=== PATIENT | female | born 1940 | race Caucasian/White ===

== ENCOUNTER 2020-05-14 10:12 | Inpatient (IN) | payer MEDICARE ==
--- NOTE | 2020-05-14 12:07 | XR ---
EXAMINATION TYPE: XR chest 2V DATE OF EXAM: 05/14/2020 COMPARISON: None INDICATION: Difficulty breathing TECHNIQUE: Frontal and lateral views of the chest are obtained. FINDINGS: The heart size is normal. The pulmonary vasculature is normal. The lungs are clear. Spondylosis of the midthoracic spine is evident. IMPRESSION: 1. No acute pulmonary process.
[2020-05-14 12:15] LABS: Anisocytosis Slight; Basophils % (A) 0 %; Eosinophils # (A) 0.1 k/uL (0-0.7); Eosinophils % (A) 2 %; HCT 23.8 % (34.0-46.0); HGB 7.9 gm/dL (11.4-16.0); Hypochromasia Slight; Lymphocytes # (A) 0.8 k/uL (1.0-4.8); Lymphocytes % (A) 16 %; MCH 31.3 pg (25.0-35.0); MCHC 33.3 g/dL (31.0-37.0); MCV 94.1 fL (80.0-100.0); Mean Platelet Volume 7.5; Monocytes # (A) 0.5 k/uL (0-1.0); Monocytes % (A) 9 %; Neutrophils # (A) 3.7 k/uL (1.3-7.7); Neutrophils % (A) 72 %; Platelet Count 286 k/uL (150-450); RBC 2.53 m/uL (3.80-5.40); RDW 17.1 % (11.5-15.5); WBC 5.1 k/uL (3.8-10.6)
[2020-05-14 12:18] LABS: INR 0.9 (<1.2); Partial Thromboplastin Time 24.2 sec (22.0-30.0); Prothrombin Time 10.1 sec (9.0-12.0)
[2020-05-14 12:20] LABS: Albumin 3.1 g/dL (3.5-5.0); Calcium 8.6 mg/dL (8.4-10.2); Magnesium 1.7 mg/dL (1.6-2.3); Total Bilirubin 0.6 mg/dL (0.2-1.3); Total Protein 6.2 g/dL (6.3-8.2)
[2020-05-14 12:28] LABS: Potassium 5.1 mmol/L (3.5-5.1)
[2020-05-14] MEDS ORDERED: NALOXONE 0.4 MG/ML 1 ML VIAL IV PRN (13:02)
[2020-05-14] MEDS ORDERED: PANTOPRAZOLE 40 MG/10 ML VIAL IVP STA (13:03)
--- NOTE | 2020-05-14 13:06 | ED ---
SOB HPI - General Chief Complaint: Shortness of Breath Stated Complaint: SOB Time Seen by Provider: 05/14/20 10:32 Source: patient Mode of arrival: wheelchair Limitations: no limitations - History of Present Illness Initial Comments: 79-year-old female presenting for multiple complaints. Patient states that she has had dyspnea for the past 2 months she states about a month ago she had bright red blood per rectum. She states is now dark she states at that time department of blood she states she was "hemorrhaging" because she was taking ibuprofen. She denies a known history of peptic ulcer disease or experiencing this in the past she stated she did not present to a hospital nor her primary care provider. Patient states she has had on and off leg swelling. Patient states her shortness of breath has increased so much so that she has difficulty ambulating. Patient denies any chest pain shortness of breath unilateral leg swelling hemoptysis history of DVT pulmonary embolism. Patient denies chest pressure jaw pain and arm pain or back pain that is new. Patient states she was taking ibuprofen month ago she had some low back pain after she felt like she slept wrong. Patient denies any specific changes in that denies any loss of bowel bladder control urinary retention loss of sensation or weakness of the lower extremities. When shortest of breath worsened this week patient presents emergency department she states the stools are still very dark - Related Data Home Medications Medication Instructions Recorded Confirmed Ascorbic Acid [Vitamin C] 500 mg PO DAILY 10/05/14 05/14/20 Benazepril HCl 20 mg PO DAILY 10/05/14 05/14/20 Calcium Carbonate/Vitamin D3 1 tab PO DAILY 10/05/14 05/14/20 [Calcium 600 + Vit D Tablet] Glucosam/Ole-Msm1/C/Efrem/Bosw 1 tab PO DAILY 10/05/14 05/14/20 [Glucosamine-Chondroitin Tablet] Levothyroxine Sodium [Synthroid] 175 mcg PO MOTUWETHFR 10/05/14 05/14/20 Levothyroxine Sodium [Synthroid] 200 mcg PO SUSA 10/05/14 05/14/20 Multivitamins, Thera [Theragran] 1 tab PO DAILY 10/05/14 05/14/20 Vitamin E (Dl,Tocopheryl Acet) 400 unit PO DAILY 10/05/14 05/14/20 [Vitamin E] Cholecalciferol [Vitamin D3 (25 1,000 unit PO DAILY 05/14/20 05/14/20 Mcg = 1000 Iu)] Turmeric Root Extract [Turmeric] 500 mg PO DAILY 05/14/20 05/14/20 Allergies Allergy/AdvReac Type Severity Reaction Status Date / Time No Known Allergies Allergy Verified 05/14/20 13:52 Review of Systems ROS Statement: Those systems with pertinent positive or pertinent negative responses have been documented in the HPI. ROS Other: All systems not noted in ROS Statement are negative. Past Medical History Past Medical History: Hypertension, Thyroid Disorder Additional Past Medical History / Comment(s): OCCASIONAL SWELLING IN ANKLES, HEMORRHOIDS AND OCCASIONAL BLOOD IN STOOL, RASH IN VAGINAL AREA. PT USES WALKER. History of Any Multi-Drug Resistant Organisms: None Reported Past Surgical History: Tubal Ligation Additional Past Surgical History / Comment(s): TOE SURGERY Additional Past Anesthesia/Blood Transfusion Reaction / Comment(s): HX OF SPINAL ANESTHESIA WITH DIFFICULTY BREATHING AND CHEST PRESSURE. Past Psychological History: No Psychological Hx Reported Smoking Status: Never smoker Past Alcohol Use History: None Reported Past Drug Use History: None Reported - Past Family History Mother Family Medical History: Cancer Additional Family Medical History / Comment(s): CERVICAL CA General Exam - General Exam Comments Initial Comments: General: The patient is awake and alert, in no distress Eye: +3 mm pupils are equal, round and reactive to light, extra-ocular movements are intact. No nystagmus. There is normal conjunctiva bilaterally. No signs of icterus. Ears, nose, mouth and throat: There are moist mucous membranes and no oral lesions. Neck: The neck is supple, there is no tenderness or JVD. Cardiovascular: There is a regular rate and rhythm. No murmur, rub or gallop is appreciated. Respiratory: Lungs are clear to auscultation, respirations are non-labored, breath sounds are equal. No wheezes, stridor, rales, or rhonchi. Gastrointestinal: Soft, non-distended, non-tender abdomen without masses or organomegaly noted. There is no rebound or guarding present. Dark black stool per rectum no bright redn blood Musculoskeletal: Normal ROM, no tenderness. Strength 5/5. Sensation intact. Radial and DP pulses equal bilaterally 2+. Neurological: A&O x 3. CN II-XII intact, There are no obvious motor or sensory deficits. Coordination appears grossly intact. Speech is normal. Skin: Skin is warm and dry and no rashes or lesions are noted. Patient is very large lower extremities there is nonpitting lower external swelling equal bilaterally no calf pain or tenderness Psychiatric: Cooperative, appropriate mood & affect, normal judgment. Limitations: no limitations Course Vital Signs 05/14/20 05/14/20 10:25 15:30 Temperature 97.9 F 97.5 F L Pulse Rate 95 85 Respiratory 18 18 Rate Blood Pressure 112/69 138/51 O2 Sat by Pulse 98 98 Oximetry Medical Decision Making - Medical Decision Making Hemodynamically stable 79yo female. Hgb 7.9. Dark stools. Concern symptomatic anemia/upper GI bleed. protonix initiated. Pt transfused one unit. Patient appears stable. Case discussed with Douglas Davis who is agreeeable to admission, transfusion and care plan. GI on consultation. Pt will be admitted to Dr. Marcum who covers for patient primary care provider. - Lab Data Result diagrams: 05/14/20 11:27 05/14/20 11:27 Lab Results 05/14/20 05/14/20 05/14/20 Range/Units 11:27 11:27 11:27 WBC 5.1 (3.8-10.6) k/uL RBC 2.53 L (3.80-5.40) m/uL Hgb 7.9 L (11.4-16.0) gm/dL Hct 23.8 L (34.0-46.0) % MCV 94.1 (80.0-100.0) fL MCH 31.3 (25.0-35.0) pg MCHC 33.3 (31.0-37.0) g/dL RDW 17.1 H (11.5-15.5) % Plt Count 286 (150-450) k/uL MPV 7.5 Neutrophils % 72 % Lymphocytes % 16 % Monocytes % 9 % Eosinophils % 2 % Basophils % 0 % Neutrophils # 3.7 (1.3-7.7) k/uL Lymphocytes # 0.8 L (1.0-4.8) k/uL Monocytes # 0.5 (0-1.0) k/uL Eosinophils # 0.1 (0-0.7) k/uL Basophils # 0.0 (0-0.2) k/uL Hypochromasia Slight Anisocytosis Slight PT 10.1 (9.0-12.0) sec INR 0.9 (<1.2) APTT 24.2 (22.0-30.0) sec Sodium 135 L (137-145) mmol/L Potassium 5.1 (3.5-5.1) mmol/L Chloride 105 (98-107) mmol/L Carbon Dioxide 25 (22-30) mmol/L Anion Gap 5 mmol/L BUN 44 H (7-17) mg/dL Creatinine 0.93 (0.52-1.04) mg/dL Est GFR (CKD-EPI)AfAm 69 (>60 ml/min/1.73 sqM) Est GFR (CKD-EPI)NonAf 60 (>60 ml/min/1.73 sqM) Glucose 93 (74-99) mg/dL Plasma Lactic Acid Osiel (0.7-2.0) mmol/L Calcium 8.6 (8.4-10.2) mg/dL Magnesium 1.7 (1.6-2.3) mg/dL Total Bilirubin 0.6 (0.2-1.3) mg/dL AST 42 H (14-36) U/L ALT 19 (4-34) U/L Alkaline Phosphatase 55 (38-126) U/L Troponin I (0.000-0.034) ng/mL NT-Pro-B Natriuret Pep pg/mL Total Protein 6.2 L (6.3-8.2) g/dL Albumin 3.1 L (3.5-5.0) g/dL Stool Occult Blood (Negative) Coronavirus (PCR) (Not Detectd) Blood Type Blood Type Confirm Blood Type Recheck Bld Type Recheck Status Antibody Screen Crossmatch Spec Expiration Date 05/14/20 05/14/20 05/14/20 Range/Units 11:27 11:27 11:27 WBC (3.8-10.6) k/uL RBC (3.80-5.40) m/uL Hgb (11.4-16.0) gm/dL Hct (34.0-46.0) % MCV (80.0-100.0) fL MCH (25.0-35.0) pg MCHC (31.0-37.0) g/dL RDW (11.5-15.5) % Plt Count (150-450) k/uL MPV Neutrophils % % Lymphocytes % % Monocytes % % Eosinophils % % Basophils % % Neutrophils # (1.3-7.7) k/uL Lymphocytes # (1.0-4.8) k/uL Monocytes # (0-1.0) k/uL Eosinophils # (0-0.7) k/uL Basophils # (0-0.2) k/uL Hypochromasia Anisocytosis PT (9.0-12.0) sec INR (<1.2) APTT (22.0-30.0) sec Sodium (137-145) mmol/L Potassium (3.5-5.1) mmol/L Chloride (98-107) mmol/L Carbon Dioxide (22-30) mmol/L Anion Gap mmol/L BUN (7-17) mg/dL Creatinine (0.52-1.04) mg/dL Est GFR (CKD-EPI)AfAm (>60 ml/min/1.73 sqM) Est GFR (CKD-EPI)NonAf (>60 ml/min/1.73 sqM) Glucose (74-99) mg/dL Plasma Lactic Acid Osiel 0.9 (0.7-2.0) mmol/L Calcium (8.4-10.2) mg/dL Magnesium (1.6-2.3) mg/dL Total Bilirubin (0.2-1.3) mg/dL AST (14-36) U/L ALT (4-34) U/L Alkaline Phosphatase (38-126) U/L Troponin I <0.012 (0.000-0.034) ng/mL NT-Pro-B Natriuret Pep 103 pg/mL Total Protein (6.3-8.2) g/dL Albumin (3.5-5.0) g/dL Stool Occult Blood (Negative) Coronavirus (PCR) (Not Detectd) Blood Type Blood Type Confirm Blood Type Recheck Bld Type Recheck Status Antibody Screen Crossmatch Spec Expiration Date 05/14/20 05/14/20 05/14/20 Range/Units 11:27 11:30 11:45 WBC (3.8-10.6) k/uL RBC (3.80-5.40) m/uL Hgb (11.4-16.0) gm/dL Hct (34.0-46.0) % MCV (80.0-100.0) fL MCH (25.0-35.0) pg MCHC (31.0-37.0) g/dL RDW (11.5-15.5) % Plt Count (150-450) k/uL MPV Neutrophils % % Lymphocytes % % Monocytes % % Eosinophils % % Basophils % % Neutrophils # (1.3-7.7) k/uL Lymphocytes # (1.0-4.8) k/uL Monocytes # (0-1.0) k/uL Eosinophils # (0-0.7) k/uL Basophils # (0-0.2) k/uL Hypochromasia Anisocytosis PT (9.0-12.0) sec INR (<1.2) APTT (22.0-30.0) sec Sodium (137-145) mmol/L Potassium (3.5-5.1) mmol/L Chloride (98-107) mmol/L Carbon Dioxide (22-30) mmol/L Anion Gap mmol/L BUN (7-17) mg/dL Creatinine (0.52-1.04) mg/dL Est GFR (CKD-EPI)AfAm (>60 ml/min/1.73 sqM) Est GFR (CKD-EPI)NonAf (>60 ml/min/1.73 sqM) Glucose (74-99) mg/dL Plasma Lactic Acid Osiel (0.7-2.0) mmol/L Calcium (8.4-10.2) mg/dL Magnesium (1.6-2.3) mg/dL Total Bilirubin (0.2-1.3) mg/dL AST (14-36) U/L ALT (4-34) U/L Alkaline Phosphatase (38-126) U/L Troponin I (0.000-0.034) ng/mL NT-Pro-B Natriuret Pep pg/mL Total Protein (6.3-8.2) g/dL Albumin (3.5-5.0) g/dL Stool Occult Blood (Negative) Coronavirus (PCR) Not Detected (Not Detectd) Blood Type O Positive Blood Type Confirm O Positive Blood Type Recheck No Previous Record Bld Type Recheck Status CABO Indicated Antibody Screen NEGATIVE Crossmatch See Detail Spec Expiration Date 05/17/2020 - 232605/14/20 Range/Units 13:06 WBC (3.8-10.6) k/uL RBC (3.80-5.40) m/uL Hgb (11.4-16.0) gm/dL Hct (34.0-46.0) % MCV (80.0-100.0) fL MCH (25.0-35.0) pg MCHC (31.0-37.0) g/dL RDW (11.5-15.5) % Plt Count (150-450) k/uL MPV Neutrophils % % Lymphocytes % % Monocytes % % Eosinophils % % Basophils % % Neutrophils # (1.3-7.7) k/uL Lymphocytes # (1.0-4.8) k/uL Monocytes # (0-1.0) k/uL Eosinophils # (0-0.7) k/uL Basophils # (0-0.2) k/uL Hypochromasia Anisocytosis PT (9.0-12.0) sec INR (<1.2) APTT (22.0-30.0) sec Sodium (137-145) mmol/L Potassium (3.5-5.1) mmol/L Chloride (98-107) mmol/L Carbon Dioxide (22-30) mmol/L Anion Gap mmol/L BUN (7-17) mg/dL Creatinine (0.52-1.04) mg/dL Est GFR (CKD-EPI)AfAm (>60 ml/min/1.73 sqM) Est GFR (CKD-EPI)NonAf (>60 ml/min/1.73 sqM) Glucose (74-99) mg/dL Plasma Lactic Acid Osiel (0.7-2.0) mmol/L Calcium (8.4-10.2) mg/dL Magnesium (1.6-2.3) mg/dL Total Bilirubin (0.2-1.3) mg/dL AST (14-36) U/L ALT (4-34) U/L Alkaline Phosphatase (38-126) U/L Troponin I (0.000-0.034) ng/mL NT-Pro-B Natriuret Pep pg/mL Total Protein (6.3-8.2) g/dL Albumin (3.5-5.0) g/dL Stool Occult Blood Positive H (Negative) Coronavirus (PCR) (Not Detectd) Blood Type Blood Type Confirm Blood Type Recheck Bld Type Recheck Status Antibody Screen Crossmatch Spec Expiration Date Disposition Clinical Impression: GI bleed, Anemia, Dyspnea Disposition: ADMITTED IP TO THIS [facility] Condition: Stable Is patient prescribed a controlled substance at d/c from ED?: No Referrals: Malik Correa DO [Primary Care Provider] - 1-2 days Time of Disposition: 13:30 Decision to Admit Reason: Admit from EC Decision Date: 05/14/20 Decision Time: 13:30
[2020-05-14] MEDS: SODIUM CHLORIDE 0.9% 1,000 ML IV SCH (15:42)
[2020-05-14] MEDS ORDERED: LEVOTHYROXINE 88 MCG TAB PO SCH ×2 (18:45)
[2020-05-14] MEDS: lisinopriL 20 MG TAB PO SCH (21:17)
[2020-05-14] MEDS: CALCIUM CARB-VIT D 500 MG-5 MCG TAB PO SCH (21:17)
[2020-05-15] MEDS: LEVOTHYROXINE 100 MCG TAB PO SCH (06:21)
[2020-05-15 07:47] LABS: Anisocytosis Slight; Basophils % (A) 1 %; Eosinophils # (A) 0.1 k/uL (0-0.7); Eosinophils % (A) 3 %; HCT 22.9 % (34.0-46.0); HGB 7.7 gm/dL (11.4-16.0); Hypochromasia Slight; Lymphocytes # (A) 0.8 k/uL (1.0-4.8); Lymphocytes % (A) 21 %; MCH 31.2 pg (25.0-35.0); MCHC 33.5 g/dL (31.0-37.0); Mean Platelet Volume 7.4; Monocytes # (A) 0.4 k/uL (0-1.0); Monocytes % (A) 12 %; Neutrophils # (A) 2.3 k/uL (1.3-7.7); Neutrophils % (A) 62 %; Platelet Count 236 k/uL (150-450); RBC 2.46 m/uL (3.80-5.40); RDW 16.8 % (11.5-15.5); WBC 3.7 k/uL (3.8-10.6)
[2020-05-15] MEDS: MULTIVITAMINS, THERA 1 EACH TAB PO SCH (08:13)
[2020-05-15] MEDS: CHOLECALCIFEROL 1,000 UNIT TAB PO SCH (08:13)
[2020-05-15] MEDS: ASCORBIC ACID 500 MG TAB PO SCH (08:13)
[2020-05-15] MEDS: CALCIUM CARB-VIT D 500 MG-5 MCG TAB PO SCH (08:13)
[2020-05-15 08:23] LABS: Calcium 8.2 mg/dL (8.4-10.2); Potassium 4.1 mmol/L (3.5-5.1)
[2020-05-15] MEDS: SODIUM CHLORIDE 0.9% 1,000 ML IV SCH ×2 (08:36→16:26)
[2020-05-15] MEDS: PANTOPRAZOLE 40 MG TABLET PO SCH ×2 (09:08→16:26)
--- NOTE | 2020-05-15 12:43 | CONS ---
CONSULTATION DATE OF SERVICE: 05/15/2020 CHIEF COMPLAINT: Acute GI bleed. HISTORY OF PRESENT ILLNESS: The patient is a 79-year-old pleasant white female admitted to the hospital with progressive fatigue and weakness for the last 2 months duration. The patient states that she pulled her lower back around Thanksgiving time and since then she was taking some Motrin as needed. She took only 7 or 8 pills for that 1 day duration, but since then she has been having intermittent rectal bleeding. Initially it was bright red and subsequently turned maroon and dark in color. She usually has a bowel movement 1 or 2 a day with blood in the stool. She denies any abdominal pain. No nausea, no vomiting. She did stop taking the ibuprofen, but she continued to have the bleeding and because she was progressively getting weaker by the day, she came to the emergency room and subsequently was noted to have a hemoglobin of 7.9 g/dL. She received a unit of PRBC transfusion and repeat hemoglobin is still pending at the time of this dictation. The patient in the meantime denies any nausea, vomiting. No prior history of peptic ulcer disease. Her last colonoscopy was between 5 and 10 years ago. PAST MEDICAL HISTORY: Significant for hypertension, hypothyroidism, back pain. PAST SURGICAL HISTORY: Tubal ligation, toe surgery. SOCIAL HISTORY: No smoking, no alcohol use. MEDICATIONS: Medications at home include vitamin C, ( ), Synthroid multivitamin, vitamin D3, and tumeric. ALLERGIES: None. FAMILY HISTORY: Mother had cervical cancer. REVIEW OF SYSTEMS: CARDIOPULMONARY: No chest pain, no shortness of breath. : No dysuria or hematuria. MUSCULOSKELETAL: Unremarkable. SKIN: Unremarkable. ENDOCRINE: Unremarkable. PSYCHIATRIC: Unremarkable. NEUROLOGY: Unremarkable. ENT/VISION: Unremarkable. CONSTITUTIONAL: No recent weight loss. No fever, chills, night sweats. PHYSICAL EXAMINATION: She appears comfortable. No apparent distress. VITAL SIGNS: Stable. Blood pressure is 133/86, pulse rate 89, temperature 97.6. HEENT examination unremarkable. Conjunctivae pink. Sclerae anicteric. Oral cavity no lesions. NECK: No JVD or lymph node enlargement. CHEST: Clear to auscultation. HEART: Regular rate and rhythm. ABDOMEN: Soft. Bowel sounds are positive. No organomegaly. EXTREMITIES: No pedal edema. NEURO: She is alert and oriented x3. No focal deficits. LABS: From yesterday WBC was 5.1, hemoglobin 7.9. She received one unit of PRBC transfusion and repeat CBC is 7.7 today. WBC 3.7 and platelets are normal. PTT, INR are within normal limits. BUN was 44, creatinine 0.93. Stool occult blood was positive. Coronavirus PCR is negative. IMPRESSION: 1. This is a lady who presented to the hospital with intermittent gastrointestinal bleed for the last two months duration. The patient states that she was having bright red blood per rectum. Sometimes it was dark in color, sometimes it was black in color, over the last two months but has been consistent and developed progressive weakness and shortness of breath and came to the emergency room yesterday. Admitted with a hemoglobin of 7.9 status post one unit of PRBC transfusion. Repeat hemoglobin today 7.7 g/dL. Since being in the hospital she did not have any active bleeding as per the nursing staff. She was taking some NSAIDs around Thanksgiving time because of a pulled muscle in the back, but she stopped for a month. No prior history of peptic ulcer disease. Last colonoscopy was between 5 and 10 years ago and according to the patient it was within normal limits. 2. History of hypertension. 3. History of hypothyroidism. RECOMMENDATIONS: 1. Agree with PRBC transfusion. 2. Start on Protonix 40 mg twice daily. 3. Monitor CBC on a daily basis. 4. We will proceed with EGD/colonoscopy tomorrow. I discussed with the patient risks, benefits and complications of the procedure and she is agreeable to it. Thank you for this consultation. MMBRITTANYL / IJN: [id number] /
[2020-05-15] MEDS: lisinopriL 20 MG TAB PO SCH (16:25)
[2020-05-15] MEDS ORDERED: PEG 3350-NA SULF,BICARB,CL/KCL 4,000 ML BOTTLE PO ONE (17:00)
--- NOTE | 2020-05-15 20:23 | P.HPIM ---
History of Present Illness H&P Date: 05/15/20 History of presenting complaint: This is a pleasant 79-year-old patient of Dr. Correa. Chronic stable medical conditions include hypertension, hypothyroid, chronic kidney dysfunction uses a walker. Around she developed a muscle pull and has been using some NSAIDs. Has noted bright red blood per rectum since then. Sometimes his bright red other times it is dark in color. Slight abdominal discomfort. No fever no chills. No nausea vomiting. Patient's. Tired and rundown. Short of breath. Finding difficult to ambulate. No prior history of peptic ulcer disease. Review of systems: GEN.: Tired EYES: None HEENT: None NECK: None RESPIRATORY: Short of breath with exertion CARDIOVASCULAR: None GASTROINTESTINAL: As above GENITOURINARY: None MUSCULOSKELETAL: Joint pains LYMPHATICS: None HEMATOLOGICAL: None PSYCHIATRY: None NEUROLOGICAL: None Past medical history to include: Hypertension, hypothyroid, hemorrhoids, Social history: Does not smoke or drink alcohol. Does have a rented in the house. Uses a walker. Physical examination: VITAL SIGNS: 97.9, 95, 18, 112/69, 98% room air GENERAL: BMI 64.2, laying in bed, awake. EYES: Pupils equal. Conjunctiva palel. HEENT: External appearance of nose and ears normal, oral cavity grossly normal. NECK: JVD not raised; masses not palpable. HEART: First and second heart sounds are normal; no edema. LUNGS: Respiratory rate normal; clear to auscultation. ABDOMEN: Soft, nontender, liver spleen not palpable, no masses palpable. PSYCH: Alert and oriented x3; mood and affect normal. MUSCULAR skeletal: Evidence of OA NEUROLOGICAL: Cranial nerves grossly intact; no facial asymmetry, power and sensation grossly intact. LYMPHATICS: No lymph nodes palpable in the axilla and neck INVESTIGATIONS, reviewed in the clinical context: White count 3.7 hemoglobin 7.7 platelets 236 potassium 4.1 creatinine 0.93 Upon admission: Hemoglobin 7.9 Coronavirus-P/Cr-not detected EKG tracing personally reviewed by me-sinus rhythm, right bundle branch block Chest x-ray film personally reviewed by me-no obvious infiltrate Assessment: -Acute GI bleed in a patient is taken NSAIDs -Acute severe blood loss anemia due to GI bleed, symptomatic -Morbid obesity BMI 64.2 -Chronic gait dysfunction uses a walker -Hypothyroid -Essential hypertension Plan: GI was consulted. Unit of blood was ordered. Home medications resumed. Add PPI. Care was discussed with the patient. Questions answered. Elevate endoscopy. Past Medical History Past Medical History: Hypertension, Thyroid Disorder Additional Past Medical History / Comment(s): OCCASIONAL SWELLING IN ANKLES, HEMORRHOIDS AND OCCASIONAL BLOOD IN STOOL, RASH IN VAGINAL AREA. PT USES WALKER. History of Any Multi-Drug Resistant Organisms: None Reported Past Surgical History: Tubal Ligation Additional Past Surgical History / Comment(s): TOE SURGERY Additional Past Anesthesia/Blood Transfusion Reaction / Comment(s): HX OF SPINAL ANESTHESIA WITH DIFFICULTY BREATHING AND CHEST PRESSURE. Past Psychological History: No Psychological Hx Reported Smoking Status: Never smoker Past Alcohol Use History: None Reported Past Drug Use History: None Reported - Past Family History Mother Family Medical History: Cancer Additional Family Medical History / Comment(s): CERVICAL CA Medications and Allergies Home Medications Medication Instructions Recorded Confirmed Type Ascorbic Acid [Vitamin C] 500 mg PO DAILY 10/05/14 05/14/20 History Benazepril HCl 20 mg PO DAILY 10/05/14 05/14/20 History Calcium Carbonate/Vitamin D3 1 tab PO DAILY 10/05/14 05/14/20 History [Calcium 600 + Vit D Tablet] Glucosam/Ole-Msm1/C/Efrem/Bosw 1 tab PO DAILY 10/05/14 05/14/20 History [Glucosamine-Chondroitin Tablet] Levothyroxine Sodium [Synthroid] 175 mcg PO MOTUWETHFR 10/05/14 05/14/20 History Levothyroxine Sodium [Synthroid] 200 mcg PO SUSA 10/05/14 05/14/20 History Multivitamins, Thera [Theragran] 1 tab PO DAILY 10/05/14 05/14/20 History Vitamin E (Dl,Tocopheryl Acet) 400 unit PO DAILY 10/05/14 05/14/20 History [Vitamin E] Cholecalciferol [Vitamin D3 (25 1,000 unit PO DAILY 05/14/20 05/14/20 History Mcg = 1000 Iu)] Turmeric Root Extract [Turmeric] 500 mg PO DAILY 05/14/20 05/14/20 History Allergies Allergy/AdvReac Type Severity Reaction Status Date / Time No Known Allergies Allergy Verified 05/14/20 13:52 Physical Exam Vitals: Vital Signs Temp Pulse Pulse Resp BP BP Pulse Ox 05/15/20 08:00 97.6 F 89 16 112/64 96 05/15/20 04:00 91 18 113/54 97 05/15/20 01:15 100 18 05/14/20 23:56 100 18 121/56 96 05/14/20 20:00 97.6 F 89 18 131/62 97 05/14/20 19:35 97.6 F 89 18 131/62 97 05/14/20 16:13 98.4 F 87 18 140/81 98 05/14/20 15:43 97.6 F 90 18 143/77 98 05/14/20 15:33 97.6 F 85 18 139/93 98 05/14/20 15:30 97.5 F L 85 18 138/51 98 Intake and Output 05/14/20 05/15/20 05/15/20 22:59 06:59 14:59 Intake Total 860 Balance 860 Intake: Oral 240 Blood Product 620 Rc Cpda-1 Unit 310 [id number] Other: Voiding Method Bedside Commode Bedside Commode Bedside Commode # Voids 1 Weight 134.263 kg 175.1 kg Results CBC & Chem 7: 05/15/20 07:25 05/15/20 07:25 Labs: Abnormal Lab Results - Last 24 Hours (Table) 05/14/20 05/14/20 05/14/20 Range/Units 11:27 11:27 11:27 WBC (3.8-10.6) k/uL RBC 2.53 L (3.80-5.40) m/uL Hgb 7.9 L (11.4-16.0) gm/dL Hct 23.8 L (34.0-46.0) % RDW 17.1 H (11.5-15.5) % Lymphocytes # 0.8 L (1.0-4.8) k/uL Sodium 135 L (137-145) mmol/L Chloride (98-107) mmol/L BUN 44 H (7-17) mg/dL Calcium (8.4-10.2) mg/dL AST 42 H (14-36) U/L Total Protein 6.2 L (6.3-8.2) g/dL Albumin 3.1 L (3.5-5.0) g/dL Stool Occult Blood (Negative) Crossmatch See Detail 05/14/20 05/15/20 05/15/20 Range/Units 13:06 07:25 07:25 WBC 3.7 L (3.8-10.6) k/uL RBC 2.46 L (3.80-5.40) m/uL Hgb 7.7 L (11.4-16.0) gm/dL Hct 22.9 L (34.0-46.0) % RDW 16.8 H (11.5-15.5) % Lymphocytes # 0.8 L (1.0-4.8) k/uL Sodium (137-145) mmol/L Chloride 110 H (98-107) mmol/L BUN 26 H (7-17) mg/dL Calcium 8.2 L (8.4-10.2) mg/dL AST (14-36) U/L Total Protein (6.3-8.2) g/dL Albumin (3.5-5.0) g/dL Stool Occult Blood Positive H (Negative) Crossmatch Thrombosis Risk Factor Assmnt - Choose All That Apply Each Factor Represents 1 point: Obesity (BMI >25) Each Risk Factor Represents 3 Points: Age 75 years or older Other congenital or acquired thrombophilia - If yes, enter type in comment: No Thrombosis Risk Factor Assessment Total Risk Factor Score: 4 Thrombosis Risk Factor Assessment Level: Moderate Risk
[2020-05-16] MEDS: SODIUM CHLORIDE 0.9% 1,000 ML IV SCH (08:00)
[2020-05-16 08:47] VITALS: TEMP 97.5
[2020-05-16] MEDS ORDERED: IV FLUID CONTINUATION 200 ML IV ONE (09:18)
[2020-05-16] MEDS ORDERED: PROPOFOL 10 MG/ML 20 ML VIAL IV ONE (09:22)
[2020-05-16] MEDS ORDERED: LIDOCAINE 1% INJ 10MG/ML (20 ML MDV) ONE (09:22)
--- NOTE | 2020-05-16 09:40 | P.PCN ---
Date of Procedure: 05/16/20 Procedure(s) Performed: Brief history: Patient is a pleasant 79-year-old white female admitted hospital with intermittent rectal bleeding and Dr. stools for the last 1 month duration. She had a hemoglobin of 7.7 requiring 1 unit of PRBC transition. She is scheduled for an upper endoscopy as well as colonoscopy to evaluate further. Procedure performed: Esophagogastroduodenoscopy with biopsy Colonoscopy Preoperative diagnosis: Symptomatic anemia and GI bleed Anesthesia: MAC Procedure: After informed consent was obtained from the patient was brought into the endoscopy unit and IV sedation was administered by anesthesia under continuous monitoring. Initially upper endoscopy was done. The Olympus GF 160 video endoscope was inserted inserted into the mouth and esophagus intubated without any difficulty and was gradually advanced into the stomach and duodenum and carefully examined. The second part of the duodenum appeared normal. The bulb of the duodenum there was a 1 cm clean-based ulcer with no active bleeding. The scope was then withdrawn into the stomach adequately insufflated with air and upon careful examination the antrum had gastritis and biopsies were done from this area. The body, cardia and fundus appeared normal. The scope was then withdrawn into the esophagus. The GE junction was located at 36 cm to the incisors. mall hiatal hernia noted. It appeared regular with no erythema erosions or ulcerations. Rest of the esophagus appeared normal. Patient tolerated the procedure well. At this time the patient continued to remain sedation. Initial digital rectal examination was normal. Olympus CF 160 video colonoscope was then inserted into the rectum and gradually advanced to the cecum without any difficulty. Careful examination was performed as the scope was gradually being withdrawn. The prep was excellent. The cecum, ascending colon, transverse colon, descending colon, sigmoid colon and rectum appeared normal. scattered sigmoid diverticulosis seen. Retroflexion was performed in the rectum and82 internal hemorrhoidsre noted. Patient tolerated the procedure well. Impression: 1. Upper endoscopy revealed 1 cm clean based duodenal bulbar ulcer with no active bleeding and antral gastritis. Small hiatal hernia. 2. Colonoscopy revealed scattered sigmoid diverticulosis and grade 2 internal hemorrhoids. Recommendations: Findings of this examination were discussed with the patient . She will follow with the biopsie results.. Continue Protonix 40 mg twice daily and avoid NSAIDs. Diet will be advanced as tolerated. She can be discharged home today.
[2020-05-16] MEDS: ASCORBIC ACID 500 MG TAB PO SCH (12:57)
[2020-05-16] MEDS: PANTOPRAZOLE 40 MG TABLET PO SCH (12:57)
[2020-05-16] MEDS: LEVOTHYROXINE 100 MCG TAB PO SCH (12:58)
[2020-05-16] MEDS: CHOLECALCIFEROL 1,000 UNIT TAB PO SCH (12:58)
[2020-05-16] MEDS: CALCIUM CARB-VIT D 500 MG-5 MCG TAB PO SCH (12:58)
[2020-05-16] MEDS: MULTIVITAMINS, THERA 1 EACH TAB PO SCH (12:58)
[2020-05-16 13:02] VITALS: BP 113/68; PULSE 78; RESP 17
--- NOTE | 2020-05-16 22:51 | P.DS ---
Providers Date of admission: 05/14/20 15:00 Expected date of discharge: 05/16/20 Attending physician: Glenroy Marcum Consults: 05/14/20 13:02 Consult Physician Urgent Consulting Provider: Rocio Hong Consult Reason/Comments: GI bleed Do you want consulting provider notified?: Yes Primary care physician: [facility] Course: History of presenting complaint: This is a pleasant 79-year-old patient of Dr. Correa. Chronic stable medical conditions include hypertension, hypothyroid, chronic kidney dysfunction uses a walker. Around she developed a muscle pull and has been using some NSAIDs. Has noted bright red blood per rectum since then. Sometimes his bright red other times it is dark in color. Slight abdominal discomfort. No fever no chills. No nausea vomiting. Patient's. Tired and rundown. Short of breath. Finding difficult to ambulate. No prior history of peptic ulcer disease. EGD-1 cm clean-based duodenal bulb ulcer, with antral gastritis. Colonoscopy- scattered sigmoid diverticulosis and grade 2 internal hemorrhoids. Patient had received a unit of blood Care was discussed with the patient. Questions answered. On PPI. Told to avoid NSAIDs. Discussion and discharge planning more than 35 minutes Consultation: Dr. Kevin Hong from GI Past medical history to include: Hypertension, hypothyroid, hemorrhoids, Social history: Does not smoke or drink alcohol. Does have a rented in the house. Uses a walker. Physical examination: VITAL SIGNS: 97.5, 80, 16, 103/51, 96% room air GENERAL: BMI 64.2, laying in bed, awake. EYES: Pupils equal. Conjunctiva palel. HEENT: External appearance of nose and ears normal, oral cavity grossly normal. NECK: JVD not raised; masses not palpable. HEART: First and second heart sounds are normal; no edema. LUNGS: Respiratory rate normal; clear to auscultation. ABDOMEN: Soft, nontender, liver spleen not palpable, no masses palpable. PSYCH: Alert and oriented x3; mood and affect normal. MUSCULAR skeletal: Evidence of OA INVESTIGATIONS, reviewed in the clinical context: White count 3.7 hemoglobin 7.7 platelets 236 potassium 4.1 creatinine 0.93 Upon admission: Hemoglobin 7.9 Coronavirus-P/Cr-not detected EKG tracing personally reviewed by me-sinus rhythm, right bundle branch block Chest x-ray film personally reviewed by me-no obvious infiltrate Assessment: -Acute GI bleed in a patient is taken NSAIDs from Dr. pruett ulcer -Antral gastritis -Sigmoid diverticulosis -Ray 2 internal hemorrhoids -Acute severe blood loss anemia due to GI bleed, symptomatic-received a unit of blood -Morbid obesity BMI 64.2 -Chronic gait dysfunction uses a walker -Hypothyroid -Essential hypertension Disposition: Home Patient Condition at Discharge: Stable Plan - Discharge Summary New Discharge Prescriptions: New Omeprazole [PriLOSEC] 20 mg PO AC-BID #60 cap Continue Vitamin E (Dl,Tocopheryl Acet) [Vitamin E] 400 unit PO DAILY Ascorbic Acid [Vitamin C] 500 mg PO DAILY Multivitamins, Thera [Multivitamin (formulary)] 1 tab PO DAILY Levothyroxine Sodium [Synthroid] 175 mcg PO MOTUWETHFR Levothyroxine Sodium [Synthroid] 200 mcg PO SUSA Benazepril HCl 20 mg PO DAILY Glucosam/Ole-Msm1/C/Efrem/Bosw [Glucosamine-Chondroitin Tablet] 1 tab PO DAILY Calcium Carbonate/Vitamin D3 [Calcium 600-Vit D3 400 Tablet] 1 tab PO DAILY Cholecalciferol [Vitamin D3 (25 Mcg = 1000 Iu)] 1,000 unit PO DAILY Turmeric Root Extract [Turmeric] 500 mg PO DAILY Discharge Medication List Ascorbic Acid [Vitamin C] 500 mg PO DAILY 10/05/14 [History] Benazepril HCl 20 mg PO DAILY 10/05/14 [History] Calcium Carbonate/Vitamin D3 [Calcium 600-Vit D3 400 Tablet] 1 tab PO DAILY 10/05/14 [History] Glucosam/Ole-Msm1/C/Efrem/Bosw [Glucosamine-Chondroitin Tablet] 1 tab PO DAILY 10/05/14 [History] Levothyroxine Sodium [Synthroid] 175 mcg PO MOTUWETHFR 10/05/14 [History] Levothyroxine Sodium [Synthroid] 200 mcg PO SUSA 10/05/14 [History] Multivitamins, Thera [Multivitamin (formulary)] 1 tab PO DAILY 10/05/14 [History] Vitamin E (Dl,Tocopheryl Acet) [Vitamin E] 400 unit PO DAILY 10/05/14 [History] Cholecalciferol [Vitamin D3 (25 Mcg = 1000 Iu)] 1,000 unit PO DAILY 05/14/20 [History] Turmeric Root Extract [Turmeric] 500 mg PO DAILY 05/14/20 [History] Omeprazole [PriLOSEC] 20 mg PO AC-BID #60 cap 05/16/20 [Rx] Follow up Appointment(s)/Referral(s): Malik Correa DO [Primary Care Provider] - 1-2 days Rocio Hong MD [STAFF PHYSICIAN] - 2 Weeks Activity/Diet/Wound Care/Special Instructions: cbc - 1 week
== END 2020-05-16 15:28 | disposition home or self-care (01) | DRG 378 ==
LOC: EC 10:12 → 3SCARD 15:00
PROVIDERS: ADMIT Hospitalist; ATTEND Hospitalist
PROC: 30233N1 Transfusion of Nonautologous Red Blood Cells into Peripheral Vein, Percutaneous Approach (ICD-10-PCS; 2020-05-16)
PROC: 0DJD8ZZ Inspection of Lower Intestinal Tract, Via Natural or Artificial Opening Endoscopic (ICD-10-PCS; principal; 2020-05-16 09:00)
PROC: 0DB68ZX Excision of Stomach, Via Natural or Artificial Opening Endoscopic, Diagnostic (ICD-10-PCS; principal; 2020-05-16 09:00)
DX: K26.4 Chronic or unspecified duodenal ulcer with hemorrhage (principal); Z68.44 Body mass index [BMI] 60.0-69.9, adult; D62 Acute posthemorrhagic anemia; T39.395A Adverse effect of other nonsteroidal anti-inflammatory drugs [NSAID], initial encounter; E66.01 Morbid (severe) obesity due to excess calories; K57.30 Diverticulosis of large intestine without perforation or abscess without bleeding; Z20.822 Contact with and (suspected) exposure to COVID-19; K64.1 Second degree hemorrhoids; E03.9 Hypothyroidism, unspecified; I10 Essential (primary) hypertension; K29.70 Gastritis, unspecified, without bleeding; K44.9 Diaphragmatic hernia without obstruction or gangrene; R26.2 Difficulty in walking, not elsewhere classified; Z79.890 Hormone replacement therapy; Z80.49 Family history of malignant neoplasm of other genital organs; Z98.51 Tubal ligation status; Z98.890 Other specified postprocedural states
CPT/HCPCS: 36415; 36430; 43239; 71046; 80048; 80053; 82272; 83605; 83735; 83880; 84484; 85025; 85610; 85730; 86850; 86900; 86901; 86920; 87635; 88305; 93005; 96374; 99285

== ENCOUNTER 2021-01-17 21:50 | Observation (INO) | payer MEDICARE ==
--- NOTE | 2021-01-17 22:27 | ED ---
Recheck HPI - General Chief Complaint: Recheck/Abnormal Lab/Rx Stated Complaint: low blood count, sent from Time Seen by Provider: 01/17/21 22:03 Source: patient Mode of arrival: ambulatory Limitations: no limitations - History of Present Illness Initial Comments: 80 year-old female patient presents to the emergency department for evaluation of low hemoglobin. Patient states that her home care nurse radha her blood today and she had hemoglobin result of 6.1. Patient states she has been feeling more cold than usual. States she has some shortness of breath when she lies down at night. States she did have a dark stool this morning, but does take an iron supplement. She states that she recently ad a hospital stay at [facility] and had a bleeding artery clipped in her stomach. She did have two units of blood during that hospital stay. She reports pinpoint left lower quadrant pain that has been going on for several months. She denies fever or chills. Denies any chest pain. Patient denies any recent rash, cough, shortness of breath, chest pain, back pain, numbness, tingling, dizziness, weakness, hematuria, dysuria, urinary urgency, urinary frequency, headache, visual changes, or any other complaints. - Related Data Home Medications Medication Instructions Recorded Confirmed Ascorbic Acid [Vitamin C] 500 mg PO DAILY 10/05/14 01/17/21 Levothyroxine Sodium [Synthroid] 175 mcg PO MOTUWETHFR 10/05/14 01/17/21 Levothyroxine Sodium [Synthroid] 200 mcg PO SUSA 10/05/14 01/17/21 Vitamin E (Dl,Tocopheryl Acet) 400 unit PO DAILY 10/05/14 01/17/21 [Vitamin E (400 Iu = 180 mg)] Turmeric Root Extract [Turmeric] 500 mg PO DAILY 05/14/20 01/17/21 Ferrous Sulfate [Iron (65 MG 325 mg PO BID 01/17/21 01/17/21 Elemental)] Furosemide [Lasix] 20 mg PO DAILY 01/17/21 01/17/21 Multivit/Folic Acid/Vit K1 1 tab PO DAILY 01/17/21 01/17/21 [One-A-Day Women's 50 Plus Tab] Vitamin B Complex 1 tab PO DAILY 01/17/21 01/17/21 Allergies Allergy/AdvReac Type Severity Reaction Status Date / Time ibuprofen Allergy "Hemorrhagi Verified 01/17/21 23:04 ng/Bleeding " Review of Systems ROS Statement: Those systems with pertinent positive or pertinent negative responses have been documented in the HPI. ROS Other: All systems not noted in ROS Statement are negative. Past Medical History Past Medical History: Hypertension, Thyroid Disorder Additional Past Medical History / Comment(s): OCCASIONAL SWELLING IN ANKLES, HEMORRHOIDS AND OCCASIONAL BLOOD IN STOOL, RASH IN VAGINAL AREA. PT USES WALKER. History of Any Multi-Drug Resistant Organisms: None Reported Past Surgical History: Tubal Ligation Additional Past Surgical History / Comment(s): TOE SURGERY Additional Past Anesthesia/Blood Transfusion Reaction / Comment(s): HX OF SPINAL ANESTHESIA WITH DIFFICULTY BREATHING AND CHEST PRESSURE. Past Psychological History: No Psychological Hx Reported Smoking Status: Never smoker Past Alcohol Use History: None Reported Past Drug Use History: None Reported - Past Family History Mother Family Medical History: Cancer Additional Family Medical History / Comment(s): CERVICAL CA General Exam Limitations: no limitations General appearance: alert, in no apparent distress, other (This is a well- developed, well-nourished adult female patient in no acute distress. Vital si gns upon presentation are temperature 98.0F, pulse 98, respirations 18, blood pressure 145/84, pulse ox 98% on room air.) ENT exam: Present: normal exam, normal oropharynx, mucous membranes moist Respiratory exam: Present: normal lung sounds bilaterally. Absent: respiratory distress, wheezes, rales, rhonchi, stridor Cardiovascular Exam: Present: regular rate, normal rhythm, normal heart sounds. Absent: systolic murmur, diastolic murmur, rubs, gallop, clicks GI/Abdominal exam: Present: soft, normal bowel sounds. Absent: distended, tenderness, guarding, rebound, rigid Neurological exam: Present: alert, oriented X3, CN II-XII intact Psychiatric exam: Present: normal affect, normal mood Skin exam: Present: warm, dry, intact, normal color. Absent: rash Course Vital Signs 01/17/21 01/17/21 21:54 23:59 Temperature 98 F 97.5 F L Pulse Rate 98 92 Respiratory 18 18 Rate Blood Pressure 145/84 160/86 O2 Sat by Pulse 98 97 Oximetry Medical Decision Making - Medical Decision Making 80-year-old female patient presents to the emergency department today for evaluation of low hemoglobin. Physical examination is unremarkable. She does report being chilled and mild shortness of breath when lying flat. Occult blood is negative. Hemoglobin here was 6.5. She'll be given 1 unit of packed red blood cells. Admitted to the hospital for further monitoring and repeat labs. I did speak with Dr. Marcum who accepts admission, requested consult to general surgery. Patient is agreeable this plan. Case discussed with my attending Dr. Durant. - Lab Data Result diagrams: 01/17/21 22:25 01/17/21 22:25 Lab Results 01/17/21 01/17/21 01/17/21 Range/Units 22:25 22:25 22:25 WBC 6.0 (3.8-10.6) k/uL RBC 2.15 L (3.80-5.40) m/uL Hgb 6.5 L* (11.4-16.0) gm/dL Hct 20.4 L (34.0-46.0) % MCV 94.8 (80.0-100.0) fL MCH 30.3 (25.0-35.0) pg MCHC 32.0 (31.0-37.0) g/dL RDW 19.3 H (11.5-15.5) % Plt Count 243 (150-450) k/uL MPV 8.2 Neutrophils % 64 % Lymphocytes % 18 % Monocytes % 11 % Eosinophils % 4 % Basophils % 0 % Neutrophils # 3.9 (1.3-7.7) k/uL Lymphocytes # 1.1 (1.0-4.8) k/uL Monocytes # 0.6 (0-1.0) k/uL Eosinophils # 0.2 (0-0.7) k/uL Basophils # 0.0 (0-0.2) k/uL Hypochromasia Moderate Anisocytosis Slight Macrocytosis Slight PT 10.8 (9.0-12.0) sec INR 1.0 (<1.2) APTT 25.3 (22.0-30.0) sec Sodium 139 (137-145) mmol/L Potassium 4.3 (3.5-5.1) mmol/L Chloride 112 H (98-107) mmol/L Carbon Dioxide 21 L (22-30) mmol/L Anion Gap 6 mmol/L BUN 33 H (7-17) mg/dL Creatinine 1.26 H (0.52-1.04) mg/dL Est GFR (CKD-EPI)AfAm 47 (>60 ml/min/1.73 sqM) Est GFR (CKD-EPI)NonAf 41 (>60 ml/min/1.73 sqM) Glucose 113 H (74-99) mg/dL Calcium 8.7 (8.4-10.2) mg/dL Total Bilirubin 0.3 (0.2-1.3) mg/dL AST 24 (14-36) U/L ALT 12 (4-34) U/L Alkaline Phosphatase 58 (38-126) U/L Troponin I (0.000-0.034) ng/mL Total Protein 5.9 L (6.3-8.2) g/dL Albumin 3.0 L (3.5-5.0) g/dL Stool Occult Blood (Negative) Blood Type Blood Type Recheck Bld Type Recheck Status Antibody Screen Crossmatch Spec Expiration Date 01/17/21 01/17/21 01/17/21 Range/Units 22:25 22:25 22:25 WBC (3.8-10.6) k/uL RBC (3.80-5.40) m/uL Hgb (11.4-16.0) gm/dL Hct (34.0-46.0) % MCV (80.0-100.0) fL MCH (25.0-35.0) pg MCHC (31.0-37.0) g/dL RDW (11.5-15.5) % Plt Count (150-450) k/uL MPV Neutrophils % % Lymphocytes % % Monocytes % % Eosinophils % % Basophils % % Neutrophils # (1.3-7.7) k/uL Lymphocytes # (1.0-4.8) k/uL Monocytes # (0-1.0) k/uL Eosinophils # (0-0.7) k/uL Basophils # (0-0.2) k/uL Hypochromasia Anisocytosis Macrocytosis PT (9.0-12.0) sec INR (<1.2) APTT (22.0-30.0) sec Sodium (137-145) mmol/L Potassium (3.5-5.1) mmol/L Chloride (98-107) mmol/L Carbon Dioxide (22-30) mmol/L Anion Gap mmol/L BUN (7-17) mg/dL Creatinine (0.52-1.04) mg/dL Est GFR (CKD-EPI)AfAm (>60 ml/min/1.73 sqM) Est GFR (CKD-EPI)NonAf (>60 ml/min/1.73 sqM) Glucose (74-99) mg/dL Calcium (8.4-10.2) mg/dL Total Bilirubin (0.2-1.3) mg/dL AST (14-36) U/L ALT (4-34) U/L Alkaline Phosphatase (38-126) U/L Troponin I <0.012 (0.000-0.034) ng/mL Total Protein (6.3-8.2) g/dL Albumin (3.5-5.0) g/dL Stool Occult Blood Negative (Negative) Blood Type O Positive Blood Type Recheck O Pos Bld Type Recheck Status No Antibody Screen NEGATIVE Crossmatch See Detail Spec Expiration Date 01/20/2021 2797 - EKG Data -: EKG Interpreted by Ne EKG Comments: EKG obtained at 2243 shows normal sinus rhythm with a ventricular rate of 86, KS interval 192, QRS duration 120, QT 394, QTC 471. No evidence of ST elevation or depression. Disposition Clinical Impression: Anemia Disposition: ADMITTED IP TO THIS [facility] Condition: Serious Decision to Admit Reason: Admit from EC Decision Date: 01/17/21 Decision Time: 23:36
[2021-01-17 22:33] LABS: Anisocytosis Slight; Basophils % (A) 0 %; Eosinophils # (A) 0.2 k/uL (0-0.7); Eosinophils % (A) 4 %; HCT 20.4 % (34.0-46.0); Hypochromasia Moderate; Lymphocytes # (A) 1.1 k/uL (1.0-4.8); Lymphocytes % (A) 18 %; MCH 30.3 pg (25.0-35.0); MCV 94.8 fL (80.0-100.0); Macrocytosis Slight; Mean Platelet Volume 8.2; Monocytes # (A) 0.6 k/uL (0-1.0); Monocytes % (A) 11 %; Neutrophils # (A) 3.9 k/uL (1.3-7.7); Neutrophils % (A) 64 %; Platelet Count 243 k/uL (150-450); RBC 2.15 m/uL (3.80-5.40); RDW 19.3 % (11.5-15.5)
[2021-01-17 22:46] LABS: Calcium 8.7 mg/dL (8.4-10.2); Potassium 4.3 mmol/L (3.5-5.1); Total Bilirubin 0.3 mg/dL (0.2-1.3); Total Protein 5.9 g/dL (6.3-8.2)
[2021-01-17 22:52] LABS: HGB 6.5 gm/dL (11.4-16.0)
[2021-01-17 23:06] LABS: Partial Thromboplastin Time 25.3 sec (22.0-30.0); Prothrombin Time 10.8 sec (9.0-12.0)
[2021-01-17] MEDS ORDERED: NALOXONE 0.4 MG/ML 1 ML VIAL IV PRN (23:34)
[2021-01-17] MEDS ORDERED: ONDANSETRON 4 MG/2 ML VIAL IVP PRN (23:34)
[2021-01-18 05:49] LABS: Anisocytosis Slight; Basophils % (A) 0 %; Eosinophils # (A) 0.3 k/uL (0-0.7); Eosinophils % (A) 4 %; HCT 21.4 % (34.0-46.0); Hypochromasia Slight; Lymphocytes # (A) 1.1 k/uL (1.0-4.8); Lymphocytes % (A) 18 %; MCH 31.1 pg (25.0-35.0); MCHC 32.5 g/dL (31.0-37.0); MCV 95.6 fL (80.0-100.0); Macrocytosis Slight; Mean Platelet Volume 7.9; Monocytes # (A) 0.6 k/uL (0-1.0); Monocytes % (A) 10 %; Neutrophils # (A) 4.2 k/uL (1.3-7.7); Neutrophils % (A) 65 %; Platelet Count 226 k/uL (150-450); Poikilocytosis Slight; RBC 2.24 m/uL (3.80-5.40); RDW 18.7 % (11.5-15.5); WBC 6.4 k/uL (3.8-10.6)
[2021-01-18] MEDS ORDERED: PANTOPRAZOLE 40 MG/10 ML VIAL IVP SCH (09:00)
[2021-01-18] MEDS: IOPAMIDOL CONTRAST (ORAL USE) VIAL PO PRN ×2 (11:53→13:03)
[2021-01-18] MEDS: LEVOTHYROXINE 88 MCG TAB PO SCH (11:54)
[2021-01-18 12:02] LABS: Anisocytosis Slight; Basophils % (A) 1 %; Eosinophils # (A) 0.2 k/uL (0-0.7); Eosinophils % (A) 4 %; HCT 23.8 % (34.0-46.0); HGB 7.8 gm/dL (11.4-16.0); Hypochromasia Moderate; Lymphocytes % (A) 15 %; MCH 31.2 pg (25.0-35.0); MCHC 32.7 g/dL (31.0-37.0); MCV 95.6 fL (80.0-100.0); Macrocytosis Slight; Mean Platelet Volume 8.2; Monocytes # (A) 0.5 k/uL (0-1.0); Monocytes % (A) 8 %; Neutrophils # (A) 4.4 k/uL (1.3-7.7); Neutrophils % (A) 69 %; Platelet Count 250 k/uL (150-450); Poikilocytosis Slight; RBC 2.49 m/uL (3.80-5.40); RDW 18.6 % (11.5-15.5); WBC 6.4 k/uL (3.8-10.6)
--- NOTE | 2021-01-18 13:15 | P.GSCN ---
History of Present Illness Consult date: 01/18/21 History of present illness: CHIEF COMPLAINT: Anemia HISTORY OF PRESENT ILLNESS: This is a 80-year-old female with past medical history of recent hospitalization at [facility] where she had EGD on January 02 and had a bleeding artery in her stomach that was clipped. She did require blood transfusion during that admission. She presents back to the hospital due to anemia. She had a home care nurse draw her blood at home and had a hemoglobin of 6.1. Patient does report having a few loose black stools. Her last stool was yesterday. She also is complaining of some left lower quadrant abdominal pain. She denies any nausea or vomiting. Hemoglobin on this admission was 6.5 she did receive a unit of blood hemoglobin is up to 7. Stool for occult blood is negative. Patient had EGD and colonoscopy in May [address] Hong that had shown a duodenal bulb ulcer, antral gastritis, small hiatal hernia, diverticulosis and internal hemorrhoids. Patient does get short of breath with exertion. She denies any fever chills or sweats. Surgical consult placed in regards to her anemia. Also note the patient is on iron supplement. PAST MEDICAL HISTORY: See list. PAST SURGICAL HISTORY: See list. MEDICATIONS: See list. ALLERGIES: See list. SOCIAL HISTORY: No illicit drug use. REVIEW OF SYSTEMS: CONSTITUTIONAL: Denies fever or chills. HEENT: Denies blurred vision, vision changes, or eye pain. Denies hemoptysis CARDIOVASCULAR: Denies chest pain or pressure. RESPIRATORY: No shortness of breath. GASTROINTESTINAL: See HPI for pertinent findings HEMATOLOGIC: Denies bleeding disorders. GENITOURINARY: Denies any blood in urine or increased urinary frequency. SKIN: Denies pruitis. Denies rash. PHYSICAL EXAM: VITAL SIGNS: Reviewed GENERAL: Well-developed in no acute distress. HEENT: No sclera icterus. Extraocular movements grossly intact. Moist buccal mucosa. Head is atraumatic, normocephalic. No nasal drainage. ABDOMEN: Soft. Nondistended. Left lower quadrant tenderness with palpation NEUROLOGIC: Alert and oriented. Cranial nerves II through XII grossly intact. LABORATORY DATA: WBC is 6.4 hemoglobin is now 7.8 up from 7 platelets 250 Creatinine 1.26 Stool for occult blood negative COVID-19 negative IMAGING: ASSESSMENT: 1. Acute on chronic blood loss Anemia. Patient has received blood transfusion during this admission 2. Acute upper GI bleed with black stools 3. History of bleeding artery and stomach that was clipped on recent EGD at [facility] 4. Left lower quadrant abdominal pain PLAN: -Computed tomography scan of the abdomen and pelvis with oral contrast ordered for further evaluation of left lower quadrant abdominal pain -Patient scheduled for EGD tomorrow 01/19/[address] Beach -Continue Protonix -Continue to monitor hemoglobin -Nothing by mouth after midnight Thank you for this consultation Physician Patternmaker Sample note has been reviewed by physician. Signing provider agrees with the documented findings, assessment, and plan of care. Past Medical History Past Medical History: Hypertension, Thyroid Disorder Additional Past Medical History / Comment(s): OCCASIONAL SWELLING IN ANKLES, HEMORRHOIDS AND OCCASIONAL BLOOD IN STOOL, RASH IN VAGINAL AREA. PT USES WALKER. History of Any Multi-Drug Resistant Organisms: None Reported Past Surgical History: Tubal Ligation Additional Past Surgical History / Comment(s): TOE SURGERY Additional Past Anesthesia/Blood Transfusion Reaction / Comm: HX OF SPINAL ANEST HESIA WITH DIFFICULTY BREATHING AND CHEST PRESSURE. Past Psychological History: No Psychological Hx Reported Smoking Status: Never smoker Past Alcohol Use History: None Reported Past Drug Use History: None Reported - Past Family History Mother Family Medical History: Cancer Additional Family Medical History / Comment(s): CERVICAL CA Medications and Allergies Home Medications Medication Instructions Recorded Confirmed Type Ascorbic Acid [Vitamin C] 500 mg PO DAILY 10/05/14 01/17/21 History Levothyroxine Sodium [Synthroid] 175 mcg PO MOTUWETHFR 10/05/14 01/17/21 History Levothyroxine Sodium [Synthroid] 200 mcg PO SUSA 10/05/14 01/17/21 History Vitamin E (Dl,Tocopheryl Acet) 400 unit PO DAILY 10/05/14 01/17/21 History [Vitamin E (400 Iu = 180 mg)] Turmeric Root Extract [Turmeric] 500 mg PO DAILY 05/14/20 01/17/21 History Ferrous Sulfate [Iron (65 MG 325 mg PO BID 01/17/21 01/17/21 History Elemental)] Furosemide [Lasix] 20 mg PO DAILY 01/17/21 01/17/21 History Multivit/Folic Acid/Vit K1 1 tab PO DAILY 01/17/21 01/17/21 History [One-A-Day Women's 50 Plus Tab] Vitamin B Complex 1 tab PO DAILY 01/17/21 01/17/21 History Allergies Allergy/AdvReac Type Severity Reaction Status Date / Time ibuprofen Allergy "Hemorrhagi Verified 01/17/21 23:04 ng/Bleeding " Surgical - Exam Vital Signs Temp Pulse Resp BP Pulse Ox 98 F 98 18 145/84 98 01/17/21 21:54 01/17/21 21:54 01/17/21 21:54 01/17/21 21:54 01/17/21 21:54 Results - Labs 01/18/21 11:13 01/17/21 22:25 Abnormal Lab Results - Last 24 Hours (Table) 01/17/21 01/17/21 01/17/21 Range/Units 22:25 22:25 22:25 RBC 2.15 L (3.80-5.40) m/uL Hgb 6.5 L* (11.4-16.0) gm/dL Hct 20.4 L (34.0-46.0) % RDW 19.3 H (11.5-15.5) % Chloride 112 H (98-107) mmol/L Carbon Dioxide 21 L (22-30) mmol/L BUN 33 H (7-17) mg/dL Creatinine 1.26 H (0.52-1.04) mg/dL Glucose 113 H (74-99) mg/dL Total Protein 5.9 L (6.3-8.2) g/dL Albumin 3.0 L (3.5-5.0) g/dL Crossmatch See Detail 01/18/21 01/18/21 Range/Units 05:32 11:13 RBC 2.24 L 2.49 L (3.80-5.40) m/uL Hgb 7.0 L 7.8 L (11.4-16.0) gm/dL Hct 21.4 L 23.8 L (34.0-46.0) % RDW 18.7 H 18.6 H (11.5-15.5) % Chloride (98-107) mmol/L Carbon Dioxide (22-30) mmol/L BUN (7-17) mg/dL Creatinine (0.52-1.04) mg/dL Glucose (74-99) mg/dL Total Protein (6.3-8.2) g/dL Albumin (3.5-5.0) g/dL Crossmatch Diabetes panel 01/17/21 Range/Units 22:25 Sodium 139 (137-145) mmol/L Potassium 4.3 (3.5-5.1) mmol/L Chloride 112 H (98-107) mmol/L Carbon Dioxide 21 L (22-30) mmol/L BUN 33 H (7-17) mg/dL Creatinine 1.26 H (0.52-1.04) mg/dL Glucose 113 H (74-99) mg/dL Calcium 8.7 (8.4-10.2) mg/dL AST 24 (14-36) U/L ALT 12 (4-34) U/L Alkaline Phosphatase 58 (38-126) U/L Total Protein 5.9 L (6.3-8.2) g/dL Albumin 3.0 L (3.5-5.0) g/dL Calcium panel 01/17/21 Range/Units 22:25 Calcium 8.7 (8.4-10.2) mg/dL Albumin 3.0 L (3.5-5.0) g/dL Pituitary panel 01/17/21 Range/Units 22:25 Sodium 139 (137-145) mmol/L Potassium 4.3 (3.5-5.1) mmol/L Chloride 112 H (98-107) mmol/L Carbon Dioxide 21 L (22-30) mmol/L BUN 33 H (7-17) mg/dL Creatinine 1.26 H (0.52-1.04) mg/dL Glucose 113 H (74-99) mg/dL Calcium 8.7 (8.4-10.2) mg/dL Adrenal panel 01/17/21 Range/Units 22:25 Sodium 139 (137-145) mmol/L Potassium 4.3 (3.5-5.1) mmol/L Chloride 112 H (98-107) mmol/L Carbon Dioxide 21 L (22-30) mmol/L BUN 33 H (7-17) mg/dL Creatinine 1.26 H (0.52-1.04) mg/dL Glucose 113 H (74-99) mg/dL Calcium 8.7 (8.4-10.2) mg/dL Total Bilirubin 0.3 (0.2-1.3) mg/dL AST 24 (14-36) U/L ALT 12 (4-34) U/L Alkaline Phosphatase 58 (38-126) U/L Total Protein 5.9 L (6.3-8.2) g/dL Albumin 3.0 L (3.5-5.0) g/dL
--- NOTE | 2021-01-18 18:09 | P.HPIM ---
History of Present Illness H&P Date: 01/18/21 Chief Complaint: Low hemoglobin History of presenting complaint: This is a pleasant 80-year-old patient of Dr. Correa. Chronic stable medical conditions include hypertension, hypothyroid, chronic gait dysfunction- uses a walker. Patient was admitted in May 2020. Bloody stools taking NSAIDs. EGD-1 cm clean-based duodenal bulb ulcer, with antral gastritis. Colonoscopy-scattered sigmoid diverticulosis and grade 2 internal hemorrhoids. Patient was discharged on Prilosec 20 mg twice a day. Patient started having diarrhea with the same and decided to discontinue the same. After few weeks patient started having intermittent dock stools. On January 01 patient was admitted to [facility] with a hemoglobin of 4.4. Did receive at least 2 units of blood. Her son was present at the bedside described a procedure very by the entered from the right groin and the event and block an artery that was bleeding inside the stomach. History was suggestive of embolization for a bleeding artery. Patient was discharged on January 07 from day. Patient's continued to has had some dark stools. It was unclear if this was old blood.. Patient thinks a hemogl obin was 7.4 when showed discharged from had before. Yesterday her PCP Dr. Correa called the patient to come to the ER as hemoglobin dropped to 6.6. Patient does feel a bit tired. Patient did receive 1 unit of blood. Patient was informed the ER that no GI services available, this week. Review of systems: GEN.: Tired EYES: None HEENT: None NECK: None RESPIRATORY: Short of breath with exertion CARDIOVASCULAR: None GASTROINTESTINAL: As above GENITOURINARY: None MUSCULOSKELETAL: Joint pains LYMPHATICS: None HEMATOLOGICAL: None PSYCHIATRY: None NEUROLOGICAL: None Past medical history to include: Hypertension, hypothyroid, internal hemorrhoids, gait dysfunction uses a walker, primary osteoarthritis, duodenal ulcer, gastritis Social history: Does not smoke or drink alcohol. Does have a rented in the house. Uses a walker. Physical examination: VITAL SIGNS: 97.5, 79, 18, 151/77, 97% room air GENERAL: BMI 44.9, laying in bed, awake. EYES: Pupils equal. Conjunctiva pale. HEENT: External appearance of nose and ears normal, oral cavity grossly normal. NECK: JVD not raised; masses not palpable. HEART: First and second heart sounds are normal; mild edema. LUNGS: Respiratory rate normal; clear to auscultation. ABDOMEN: Soft, nontender, liver spleen not palpable, no masses palpable. PSYCH: Alert and oriented x3; mood and affect mildly anxious. MUSCULAR skeletal: Evidence of OA NEUROLOGICAL: Cranial nerves grossly intact; no facial asymmetry, power and sensation grossly intact. LYMPHATICS: No lymph nodes palpable in the axilla and neck LOWER extremity: Varicose veins on both legs Investigations January 18: Hemoglobin 7.8 Admission labs White count 60 was 6.5 platelets 243 potassium 4.3 BUN 33 creatinine 1.26 Coronavirus [PCR]: Not detected EKG tracing personally reviewed by me-normal sinus rhythm rate 86. Poor R-wave progression Assessment and plan: -This patient presents with symptomatic anemia with known duodenal ulcer per EGD in May 2020. Patient has not been taking her PPI. She was changed to a different PPI at [facility]. On January 01 patient was at [facility] where she had what appeared to be a bleeding artery in the stomach that was embolized. Patient now presents with a hemoglobin of 6.6. 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 Repeat hemoglobin 7.8. Follow H&H -Morbid obesity BMI 44.9 Weight loss measures -Chronic gait dysfunction uses a walker Fall precautions -Hypothyroid Continue Synthroid -Essential hypertension Start lisinopril hydrochlorothiazide 10/12.5 daily at bedtime -Primary osteoarthritis Tylenol when necessary -Varicose veins, lower extremity ROXANE stockings. Repeat hemoglobin is come back at 7.8. Had a very lengthy talk with the patient and the son. No GI services available here. PPI started. Did explain that if the embolization was carried out that can be only done at a tertiary center. We'll follow the patient overnight. Repeat hemoglobin. Surgery is on the case. He wanted a computed tomography scan. Past Medical History Past Medical History: Hypertension, Thyroid Disorder Additional Past Medical History / Comment(s): OCCASIONAL SWELLING IN ANKLES, HEMORRHOIDS AND OCCASIONAL BLOOD IN STOOL, RASH IN VAGINAL AREA. PT USES WALKER. History of Any Multi-Drug Resistant Organisms: None Reported Past Surgical History: Tubal Ligation Additional Past Surgical History / Comment(s): TOE SURGERY Additional Past Anesthesia/Blood Transfusion Reaction / Comment(s): HX OF SPINAL ANESTHESIA WITH DIFFICULTY BREATHING AND CHEST PRESSURE. Past Psychological History: No Psychological Hx Reported Smoking Status: Never smoker Past Alcohol Use History: None Reported Past Drug Use History: None Reported - Past Family History Mother Family Medical History: Cancer Additional Family Medical History / Comment(s): CERVICAL CA Medications and Allergies Home Medications Medication Instructions Recorded Confirmed Type Ascorbic Acid [Vitamin C] 500 mg PO DAILY 10/05/14 01/17/21 History Levothyroxine Sodium [Synthroid] 175 mcg PO MOTUWETHFR 10/05/14 01/17/21 History Levothyroxine Sodium [Synthroid] 200 mcg PO SUSA 10/05/14 01/17/21 History Vitamin E (Dl,Tocopheryl Acet) 400 unit PO DAILY 10/05/14 01/17/21 History [Vitamin E (400 Iu = 180 mg)] Turmeric Root Extract [Turmeric] 500 mg PO DAILY 05/14/20 01/17/21 History Ferrous Sulfate [Iron (65 MG 325 mg PO BID 01/17/21 01/17/21 History Elemental)] Furosemide [Lasix] 20 mg PO DAILY 01/17/21 01/17/21 History Multivit/Folic Acid/Vit K1 1 tab PO DAILY 01/17/21 01/17/21 History [One-A-Day Women's 50 Plus Tab] Vitamin B Complex 1 tab PO DAILY 01/17/21 01/17/21 History Allergies Allergy/AdvReac Type Severity Reaction Status Date / Time ibuprofen Allergy "Hemorrhagi Verified 01/17/21 23:04 ng/Bleeding " Physical Exam Vitals: Vital Signs Temp Pulse Pulse Resp BP BP Pulse Ox 01/18/21 06:59 97.5 F L 79 18 151/77 97 01/18/21 06:29 83 18 141/78 97 01/18/21 02:47 96 18 154/78 94 L 01/18/21 00:39 98.8 F 99 18 148/88 97 01/18/21 00:09 97.7 F 95 18 157/88 97 01/17/21 23:59 97.5 F L 92 18 160/86 97 01/17/21 22:57 87 18 165/87 97 01/17/21 21:54 98 F 98 18 145/84 98 Intake and Output 01/17/21 01/18/21 01/18/21 22:59 06:59 14:59 Intake Total 310 Balance 310 Intake: Blood Product 310 Rc As-1 Unit 310 [id number] Other: Weight 122.47 kg 122.47 kg Results CBC & Chem 7: 01/18/21 11:13 01/17/21 22:25 Labs: Abnormal Lab Results - Last 24 Hours (Table) 01/17/21 01/17/21 01/17/21 Range/Units 22:25 22:25 22:25 RBC 2.15 L (3.80-5.40) m/uL Hgb 6.5 L* (11.4-16.0) gm/dL Hct 20.4 L (34.0-46.0) % RDW 19.3 H (11.5-15.5) % Chloride 112 H (98-107) mmol/L Carbon Dioxide 21 L (22-30) mmol/L BUN 33 H (7-17) mg/dL Creatinine 1.26 H (0.52-1.04) mg/dL Glucose 113 H (74-99) mg/dL Total Protein 5.9 L (6.3-8.2) g/dL Albumin 3.0 L (3.5-5.0) g/dL Crossmatch See Detail 01/18/21 Range/Units 05:32 RBC 2.24 L (3.80-5.40) m/uL Hgb 7.0 L (11.4-16.0) gm/dL Hct 21.4 L (34.0-46.0) % RDW 18.7 H (11.5-15.5) % Chloride (98-107) mmol/L Carbon Dioxide (22-30) mmol/L BUN (7-17) mg/dL Creatinine (0.52-1.04) mg/dL Glucose (74-99) mg/dL Total Protein (6.3-8.2) g/dL Albumin (3.5-5.0) g/dL Crossmatch Thrombosis Risk Factor Assmnt - Choose All That Apply Any of the Below Risk Factors Present?: No Other Risk Factors: Yes Each Risk Factor Represents 3 Points: Age 75 years or older Thrombosis Risk Factor Assessment Total Risk Factor Score: 3 Thrombosis Risk Factor Assessment Level: Moderate Risk
[2021-01-18] MEDS: PANTOPRAZOLE 40 MG/10 ML VIAL IVP SCH (20:04)
[2021-01-18] MEDS ORDERED: LISINOPRIL-HCTZ 10-12.5 MG 1 EACH TAB PO SCH (21:00)
--- NOTE | 2021-01-19 06:31 | CT ---
EXAMINATION TYPE: CT abdomen pelvis wo con DATE OF EXAM: 01/18/2021 COMPARISON: None HISTORY: LLQ pain CT DLP: 1522.1 mGycm Automated exposure control for dose reduction was used. TECHNIQUE: Helical acquisition of images from the lung bases through the pelvis. Patient received or al contrast. FINDINGS: Lack of intravenous contrast could compromise sensitivity. There is some anasarca changes w ithin the subcutaneous fat. There is a hiatal hernia. LUNG BASES: Bibasilar effusions are present, there is associated atelectatic change. Possible mitral annular calcification noted incidentally. AORTA: No significant abnormality is appreciated. LIVER/GB: Patient is post cholecystectomy. Colonic interposition noted anterior to the lower aspect o f the right lobe of the liver, liver shows no mass. PANCREAS: No significant abnormality is seen. SPLEEN: No significant abnormality is seen. ADRENALS: 2.9 cm low-attenuation focus associated with the left adrenal gland likely represents adeno ma. KIDNEYS: Suspect there are probable parapelvic cysts associated with the kidneys, exophytic cyst is p resent at the posterior aspect of the midpole cortex which shows high attenuation and measures proxim ally 15 mm, possibly proteinaceous cyst REPRODUCTIVE ORGANS: Possible left ovarian cyst measuring 3.2 cm, uterus is atrophic URINARY BLADDER: No significant abnormality is seen. BOWEL: Diverticular changes associated with the sigmoid colon. There is no evident bowel obstruction . Contrast material is coarse partially into the colon on the right. Question rectocele. FREE AIR: No Free Air is visible. ASCITES: None visible. PELVIC ADENOPATHY: None visualized. RETROPERITONEAL ADENOPATHY: No Retroperitoneal Adenopathy visible. OSSEOUS STRUCTURES: Degenerative disc disease is extensive, there is associated facet arthropathy, s remy curvature. IMPRESSION: DIVERTICULOSIS. HIATAL HERNIA. BILATERAL PLEURAL EFFUSIONS. NONCONTRAST EXAM. POSTOP CHANGE. LEFT OVA CONNIE CYSTIC FOCUS. Additional findings above.
[2021-01-19 07:14] LABS: Anisocytosis Slight; Basophils % (A) 0 %; Eosinophils # (A) 0.3 k/uL (0-0.7); Eosinophils % (A) 5 %; HCT 21.2 % (34.0-46.0); Hypochromasia Moderate; Lymphocytes # (A) 0.8 k/uL (1.0-4.8); Lymphocytes % (A) 13 %; MCH 30.3 pg (25.0-35.0); MCHC 31.1 g/dL (31.0-37.0); MCV 97.4 fL (80.0-100.0); Macrocytosis Slight; Mean Platelet Volume 8.1; Monocytes # (A) 0.5 k/uL (0-1.0); Monocytes % (A) 9 %; Neutrophils # (A) 4.2 k/uL (1.3-7.7); Neutrophils % (A) 70 %; Platelet Count 218 k/uL (150-450); Poikilocytosis Slight; RBC 2.18 m/uL (3.80-5.40); RDW 19.8 % (11.5-15.5)
[2021-01-19 07:23] LABS: African American GFR (CKD) 63 (>60 ml/min/1.73 sqM); Anion Gap 4 mmol/L; Blood Urea Nitrogen 25 mg/dL (7-17); Calcium 8.5 mg/dL (8.4-10.2); Carbon Dioxide 23 mmol/L (22-30); Chloride 113 mmol/L (98-107); Glucose 86 mg/dL (74-99); Non-African American GFR(CKD) 54 (>60 ml/min/1.73 sqM); Potassium 4.2 mmol/L (3.5-5.1); Sodium 140 mmol/L (137-145)
[2021-01-19 07:30] LABS: HGB 6.6 gm/dL (11.4-16.0)
[2021-01-19] MEDS: PANTOPRAZOLE 40 MG/10 ML VIAL IVP SCH (07:38)
[2021-01-19] MEDS: LEVOTHYROXINE 88 MCG TAB PO SCH (07:58)
[2021-01-19] MEDS ORDERED: VITAMIN E (DL,TOCOPHERYL ACET) 400 UNIT (180 MG) CAP PO SCH (09:00)
[2021-01-19] MEDS ORDERED: NON FORMULARY DRUG (Vitamin B Complex [Vitamin B Complex] 1 EACH Capsule) PO SCH (09:00)
[2021-01-19] MEDS ORDERED: HYDROCORTISONE SUPPOSITORY 25 MG SUPP RECTAL SCH (09:00)
[2021-01-19] MEDS ORDERED: ASCORBIC ACID 500 MG TAB PO SCH (09:00)
[2021-01-19] MEDS ORDERED: MULTIVITAMINS, THERA 1 EACH TAB PO SCH (09:00)
--- NOTE | 2021-01-19 11:01 | P.PN ---
Subjective Progress Note Date: 01/19/21 CHIEF COMPLAINT: Anemia HISTORY OF PRESENT ILLNESS: Patient is 80-year-old female who presented with anemia recent clipped artery in her stomach at [facility]. Also has a prior history of duodenal ulcer and diverticulosis. Patient's hemoglobin did drop to 6.6 this morning and she is getting a unit of blood. Her stool this morning was brown there were a few small drops of red blood on the floor. Possibly related to her hemorrhoids. She is still has some left lower quadrant pain which is improving. Computed tomography scan of abdomen and pelvis diverticulosis. Hiatal hernia. Bilateral pleural effusions. Left ovarian cystic focus. Afebrile. WBC is 6.0 hemoglobin 6.6 platelets 218 patient initially scheduled for EGD. Patient does not want to proceed with EGD here. She wants to return to [facility] where she had a recent EGD completed. Patient does have some shortness of breath. She denies any dizziness or lightheadedness. Denies any nausea or vomiting. PHYSICAL EXAM: VITAL SIGNS: Reviewed. GENERAL: Well-developed in no acute distress. HEENT: No sclera icterus. Extraocular movements grossly intact. Moist buccal mucosa. Head is atraumatic, normocephalic. ABDOMEN: Soft. Nondistended. Nontender. NEUROLOGIC: Alert and oriented. Cranial nerves II through XII grossly intact. ASSESSMENT: 1. Acute on chronic blood loss Anemia. Patient has received blood transfusion during this admission 2. Acute upper GI bleed with black stools 3. History of bleeding artery and stomach that was clipped on recent EGD at [facility] 4. Left lower quadrant abdominal pain improved. No evidence of diverticulitis. PLAN: -Patient refused EGD today. She wants to go to [facility] where she had a recent EGD and procedure of the stomach artery clipping. -EGD has been canceled for today. I would recommend that patient follows up with her [facility] GI specialist for further workup of acute GI bleeding -Agree with blood transfusion -Start patient on clear liquid diet -Continue Protonix -Anusol suppositories added for hemorrhoids and minimal rectal bleeding Physician Senior Software Qa Engineer note has been reviewed by physician. Signing provider agrees with the documented findings, assessment, and plan of care. Objective - Vital Signs Vital signs: Vital Signs Temp 97.5 F L 01/19/21 10:08 Pulse 71 01/19/21 10:08 Resp 16 01/19/21 10:08 BP 145/77 01/19/21 10:08 Pulse Ox 96 01/19/21 10:08 Intake & Output 01/18/21 01/19/21 01/19/21 18:59 06:59 18:59 Intake Total 0 Balance 0 Weight 122.47 kg Intake: Blood Product 0 Rc Irr As1 Unit 0 [id number] Other: # Voids 3 4 # Bowel Movements 2 2 - Labs CBC & Chem 7: 01/19/21 06:33 01/19/21 06:33 Labs: Abnormal Lab Results - Last 24 Hours (Table) 01/17/21 01/18/21 01/19/21 Range/Units 22:25 11:13 06:33 RBC 2.49 L (3.80-5.40) m/uL Hgb 7.8 L (11.4-16.0) gm/dL Hct 23.8 L (34.0-46.0) % RDW 18.6 H (11.5-15.5) % Lymphocytes # (1.0-4.8) k/uL Chloride 113 H (98-107) mmol/L BUN 25 H (7-17) mg/dL Crossmatch See Detail 01/19/21 Range/Units 06:33 RBC 2.18 L (3.80-5.40) m/uL Hgb 6.6 L* (11.4-16.0) gm/dL Hct 21.2 L (34.0-46.0) % RDW 19.8 H (11.5-15.5) % Lymphocytes # 0.8 L (1.0-4.8) k/uL Chloride (98-107) mmol/L BUN (7-17) mg/dL Crossmatch
[2021-01-19 13:52] LABS: Anisocytosis Slight; HCT 27.1 % (34.0-46.0); Hypochromasia Moderate; MCH 31.3 pg (25.0-35.0); MCHC 32.3 g/dL (31.0-37.0); MCV 96.9 fL (80.0-100.0); Macrocytosis Slight; Mean Platelet Volume 8.4; Platelet Count 271 k/uL (150-450); Poikilocytosis Slight; RDW 18.9 % (11.5-15.5); WBC 6.5 k/uL (3.8-10.6)
[2021-01-19 13:58] LABS: HGB 8.8 gm/dL (11.4-16.0)
[2021-01-19] MEDS ORDERED: IV FLUID CONTINUATION 1,000 ML IV ONE (14:42)
[2021-01-19 14:44] VITALS: BP 147/83; PULSE 77; RESP 18; TEMP 97.5
--- NOTE | 2021-01-21 18:57 | P.DS ---
Providers Date of admission: 01/17/21 23:12 Expected date of discharge: 01/19/21 Attending physician: Glenroy Marcum Consults: 01/18/21 00:08 Consult Physician Routine Consulting Provider: Vicente Beach Consult Reason/Comments: anemia Do you want consulting provider notified?: Yes Primary care physician: [facility] Course: Chief Complaint: Low hemoglobin History of presenting complaint: This is a pleasant 80-year-old patient of Dr. Correa. Chronic stable medical conditions include hypertension, hypothyroid, chronic gait dysfunction- uses a walker. Patient was admitted in May 2020. Bloody stools taking NSAIDs. EGD-1 cm clean-based duodenal bulb ulcer, with antral gastritis. Colonoscopy-scattered sigmoid diverticulosis and grade 2 internal hemorrhoids. Patient was discharged on Prilosec 20 mg twice a day. Patient started having diarrhea with the same and decided to discontinue the same. After few weeks patient started having intermittent dock stools. On January 01 patient was admitted to [facility] with a hemoglobin of 4.4. Did receive at least 2 units of blood. Her son was present at the bedside described a procedure very by the entered from the right groin and the event and block an artery that was bleeding inside the stomach. History was suggestive of embolization for a bleeding artery. Patient was discharged on January 07 from day. Patient's continued to has had some dark stools. It was unclear if this was old blood.. Patient thinks a hemoglobin was 7.4 when showed discharged from had before. Yesterday her PCP Dr. Correa called the patient to come to the ER as hemoglobin dropped to 6.6. Patient does feel a bit tired. Patient did receive 1 unit of blood. Patient was informed the ER that no GI services available, this week. January 19: Patient had some more bleeding overnight. Hemoglobin this morning 6.6. 1 unit of blood ordered. Repeat hemoglobin 8.8. No more bleeding today. Care was discussed with the patient. We will be discharged. She will follow up at [facility] regarding her bleeding. Patient's currently stable. Discussed at length. Patient does not want endoscopy here that was offered by Dr. Beach. No dizziness or lightheadedness. Discussion and discharge planning more than 35 minutes Consultation: Dr. Beach from general surgery Past medical history to include: Hypertension, hypothyroid, internal hemorrhoids, gait dysfunction uses a walker, primary osteoarthritis, duodenal ulcer, gastritis Social history: Does not smoke or drink alcohol. Does have a rented in the house. Uses a walker. Physical examination: VITAL SIGNS: 96.7, 78, 16, 147/75, GENERAL: Laying in bed, comfortable EYES: Pupils equal. Conjunctiva pale. NECK: JVD not raised; masses not palpable. HEART: First and second heart sounds are normal; mild edema. LUNGS: Respiratory rate normal; clear to auscultation. ABDOMEN: Soft, nontender, liver spleen not palpable, no masses palpable. PSYCH: Alert and oriented x3; mood and affect mildly anxious. MUSCULAR skeletal: Evidence of OA LOWER extremity: Varicose veins on both legs Investigations January 19: Hemoglobin 6.6. Repeat 8.8 after 1 unit for blood January 18: Hemoglobin 7.8 Admission labs White count 60 was 6.5 platelets 243 potassium 4.3 BUN 33 creatinine 1.26 Coronavirus [PCR]: Not detected EKG tracing personally reviewed by me-normal sinus rhythm rate 86. Poor R-wave progression Assessment and plan: -This patient presents with symptomatic anemia with known duodenal ulcer per EGD in May 2020. Patient has not been taking her PPI. She was changed to a different PPI at [facility]. On January 01 patient was at [facility] where bleeding artery was embolized. 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 Repeat hemoglobin 7.8. Follow H&H -Morbid obesity BMI 44.9 Weight loss measures -Chronic gait dysfunction uses a walker Fall precautions -Hypothyroid Continue Synthroid -Essential hypertension Start lisinopril hydrochlorothiazide 10/12.5 daily at bedtime -Primary osteoarthritis Tylenol when necessary -Varicose veins, lower extremity ROXANE stockings. Disposition: Home. Follow-up at [facility]. Plan - Discharge Summary Discharge Rx Participant: No New Discharge Prescriptions: New Hydrocortisone Suppository [Anusol-Hc] 25 mg RECTAL DAILY #30 supp Lisinopril-Hctz 10-12.5 mg [Zestoretic 10-12.5] 1 each PO HS #30 tab Continue Levothyroxine Sodium [Synthroid] 175 mcg PO MOTUWETHFR Levothyroxine Sodium [Synthroid] 200 mcg PO SUSA Discontinued Vitamin E (Dl,Tocopheryl Acet) [Vitamin E (400 Iu = 180 mg)] 400 unit PO DAILY Ascorbic Acid [Vitamin C] 500 mg PO DAILY Multivit/Folic Acid/Vit K1 [One-A-Day Women's 50 Plus Tab] 1 tab PO DAILY Furosemide [Lasix] 20 mg PO DAILY Vitamin B Complex 1 tab PO DAILY No Action Turmeric Root Extract [Turmeric] 500 mg PO DAILY Ferrous Sulfate [Iron (65 MG Elemental)] 325 mg PO BID Discharge Medication List Levothyroxine Sodium [Synthroid] 175 mcg PO MOTUWETHFR 10/05/14 [History] Levothyroxine Sodium [Synthroid] 200 mcg PO SUSA 10/05/14 [History] Turmeric Root Extract [Turmeric] 500 mg PO DAILY 05/14/20 [History] Ferrous Sulfate [Iron (65 MG Elemental)] 325 mg PO BID 01/17/21 [History] Hydrocortisone Suppository [Anusol-Hc] 25 mg RECTAL DAILY #30 supp 01/19/21 [Rx] Lisinopril-Hctz 10-12.5 mg [Zestoretic 10-12.5] 1 each PO HS #30 tab 01/19/21 [Rx] Follow up Appointment(s)/Referral(s): Malik Correa DO [Primary Care Provider] - 01/25/21 2:20 pm Patient Instructions/Handouts: Hemolytic Anemia (GEN) Activity/Diet/Wound Care/Special Instructions: Please go see surgeon at [facility] as soon as leaving here. Discharge Disposition: HOME SELF-CARE
[2021-01-22] MEDS ORDERED: LEVOTHYROXINE 100 MCG TAB PO SCH (06:30)
== END 2021-01-19 15:09 | disposition home or self-care (01) ==
LOC: EC 21:50 → 5NMEDONC 23:12 → INTOOBSV 23:12 → 5NMEDONC 01-18 04:05 → 4SSUR 01-18 05:38 → UNDODISIN 01-19 15:09
PROVIDERS: ADMIT Hospitalist; ATTEND Hospitalist
DX: K26.4 Chronic or unspecified duodenal ulcer with hemorrhage (principal); K29.50 Unspecified chronic gastritis without bleeding; K57.30 Diverticulosis of large intestine without perforation or abscess without bleeding; K64.1 Second degree hemorrhoids; D62 Acute posthemorrhagic anemia; E66.01 Morbid (severe) obesity due to excess calories; Z68.41 Body mass index [BMI] 40.0-44.9, adult; R26.9 Unspecified abnormalities of gait and mobility; E03.9 Hypothyroidism, unspecified; I10 Essential (primary) hypertension; M19.91 Primary osteoarthritis, unspecified site; I83.90 Asymptomatic varicose veins of unspecified lower extremity; K26.9 Duodenal ulcer, unspecified as acute or chronic, without hemorrhage or perforation; J90 Pleural effusion, not elsewhere classified; K44.9 Diaphragmatic hernia without obstruction or gangrene; K26.7 Chronic duodenal ulcer without hemorrhage or perforation; R21 Rash and other nonspecific skin eruption; T39.395A Adverse effect of other nonsteroidal anti-inflammatory drugs [NSAID], initial encounter; Z20.822 Contact with and (suspected) exposure to COVID-19; Z53.20 Procedure and treatment not carried out because of patient's decision for unspecified reasons; Z87.19 Personal history of other diseases of the digestive system; Z79.890 Hormone replacement therapy; Z79.899 Other long term (current) drug therapy; Z88.8 Allergy status to other drugs, medicaments and biological substances; Z80.49 Family history of malignant neoplasm of other genital organs
CPT/HCPCS: 36430; 99284; 36415; 93005; 86900; 86901; 80053; 80048; 84484; 85025 ×3; 85027; 85610; 85730; 86850; 86920; 82272; 87635; 74176; G0378 ×4; P9016 ×2; 99285

== ENCOUNTER → 2021-02-09 | Outpatient (CLI) | payer MEDICARE ==
--- NOTE | 2021-02-10 17:01 | ECHOF ---
Referral Reason:R01.1 cardiac murmur, unspecified MEASUREMENTS -------- HEIGHT: 165.1 cm WEIGHT: 113.4 kg BP: RVIDd: 3.7 cm (< 3.3) IVSd: 1.7 cm (0.6 - 1.1) LVIDd: 4.7 cm (3.9 - 5.3) LVPWd: 1.8 cm (0.6 - 1.1) IVSs: 2.1 cm LVIDs: 3.2 cm LVPWs: 2.3 cm LAESV Index (A-L): 42.70 ml/m Ao Diam: 3.0 cm (2.0 - 3.7) AV Cusp: 1.4 cm (1.5 - 2.6) LA Diam: 5.7 cm (2.7 - 3.8) MV EXCURSION: 14.577 mm (> 18.000) MV EF SLOPE: 48 mm/s (70 - 150) EPSS: 0.3 cm MV E Jose: 1.20 m/s MV DecT: 152 ms MV A Jose: 1.63 m/s MV E/A Ratio: 0.74 AV maxP.80 mmHg AV meanP.05 mmHg RAP: 5.00 mmHg RVSP: 34.01 mmHg FINDINGS -------- Sinus rhythm. This was a technically adequate study. The left ventricular size is normal. There is moderate concentric left ventricular hypertrophy. O verall left ventricular systolic function is normal with, an EF between 55 - 60 %. Left ventricular fillimg pressure cannot be estimated due to severe mitral annular calcification. The right ventricle is mildly enlarged. LA is severely dilated >40 ml/m2 The right atrial size is normal. Interatrial and interventricular septum intact. There is mild aortic valve sclerosis. There is no evidence of aortic regurgitation. There is mild aortic stenosis present. Peak/mean gradient across the Aortic Valve is 21.80mmHg / 13.05mmHg. Severe mitral annular calcification present. Moderate mitral regurgitation is present. Mild tricuspid regurgitation present. There is no evidence of pulmonary hypertension. The right v entricular systolic pressure, as measured by Doppler, is 34.01mmHg. Trace/mild (physiologic) pulmonic regurgitation. The aortic root size is normal. IVC Not well visulized. There is no pericardial effusion. CONCLUSIONS -------- 1. The left ventricular size is normal. 2. There is moderate concentric left ventricular hypertrophy. 3. Overall left ventricular systolic function is normal with, an EF between 55 - 60 %. 4. Left ventricular fillimg pressure cannot be estimated due to severe mitral annular calcification. 5. The right ventricle is mildly enlarged. 6. LA is severely dilated >40 ml/m2 7. There is mild aortic valve sclerosis. 8. There is mild aortic stenosis present. 9. Peak/mean gradient across the Aortic Valve is 21.80mmHg / 13.05mmHg. 10. Severe mitral annular calcification present. 11. Moderate mitral regurgitation is present. 12. Mild tricuspid regurgitation present. 13. Trace/mild (physiologic) pulmonic regurgitation. DIRECTOR OF GLOBAL SALES: Shayy Kinney RDCS
== END | disposition home or self-care (01) ==
LOC: RADECHMAIN 11:48
PROVIDERS: ATTEND Family Medicine
DX: I35.0 Nonrheumatic aortic (valve) stenosis (principal); I51.7 Cardiomegaly
CPT/HCPCS: 93306

== ENCOUNTER 2021-10-28 15:48 | Observation (INO) | payer MEDICARE ==
[2021-10-28] MEDS ORDERED: SODIUM CHLORIDE 0.9% 500 ML 500 ML IV STA (16:27)
--- NOTE | 2021-10-28 16:30 | ED ---
General Adult HPI - General Chief complaint: Dizziness Stated complaint: Low blood pressure Time Seen by Provider: 10/28/21 16:16 Source: patient, RN notes reviewed, old records reviewed Mode of arrival: ambulatory Limitations: no limitations - History of Present Illness Initial comments: 80-year-old female presents for evaluation of lightheadedness, with nausea. No chest pain, no focal numbness or weakness to patient states that she had been off of her antihypertensive medication for approximately one half years and that she initiated this medication again today. She started lisinopril 5 mg. She did not feel well after taking this medication and took her blood pressure at home and it was quite low. She was instructed to present to the emergency department. Additionally she had 2 episodes of bright red rectal bleeding today. No anticoagulation. Previous history of significant GI bleed. - Related Data Home Medications Medication Instructions Recorded Confirmed Levothyroxine Sodium [Synthroid] 175 mcg PO MOTUWETH 10/05/14 10/28/21 Levothyroxine Sodium [Synthroid] 200 mcg PO SUFRSA 10/05/14 10/28/21 Turmeric Root Extract [Turmeric] 500 mg PO DAILY 05/14/20 10/28/21 Ferrous Sulfate [Iron (65 MG 325 mg PO DAILY 01/17/21 10/28/21 Elemental)] Ascorbic Acid [Vitamin C] 500 mg PO W/SUPPER 10/28/21 10/28/21 Calcium Carbonate [Calcium] 600 mg PO W/SUPPER 10/28/21 10/28/21 Cholecalciferol [Vitamin D3 (25 25 mcg PO W/SUPPER 10/28/21 10/28/21 Mcg = 1000 Iu)] Furosemide [Lasix] 40 mg PO DAILY 10/28/21 10/28/21 Hydroxychloroquine Sulfate 200 mg PO SA@0900,2100 10/28/21 10/28/21 Loteprednol Etabonate [Lotemax] 1 drop LEFT EYE TID 10/28/21 10/28/21 Multivitamins, Thera [Multivitamin 1 tab PO DAILY 10/28/21 10/28/21 (formulary)] Aabettyt-Uddijdksh-Lrngebyr 1 applic LEFT EYE HS 10/28/21 10/28/21 [Maxitrol Ophth Oint] Omeprazole 40 mg PO HS 10/28/21 10/28/21 Potassium Chloride ER [K-Dur 20] 20 meq PO W/SUPPER 10/28/21 10/28/21 Vitamin A 2,400 mcg PO W/SUPPER 10/28/21 10/28/21 Vitamin E (Dl,Tocopheryl Acet) 400 unit PO W/SUPPER 10/28/21 10/28/21 [Vitamin E (400 Iu = 180 mg)] Zinc 50 mg PO HS 10/28/21 10/28/21 lisinopriL [Zestril] 5 mg PO ONCE 10/28/21 10/28/21 metOLazone 2.5 mg PO DAILY 10/28/21 10/28/21 Allergies Allergy/AdvReac Type Severity Reaction Status Date / Time ibuprofen Allergy "Hemorrhagi Verified 10/28/21 17:39 ng/Bleeding " Penicillins Allergy Unknown Verified 10/28/21 17:39 Childhood Review of Systems ROS Statement: Those systems with pertinent positive or pertinent negative responses have been documented in the HPI. ROS Other: All systems not noted in ROS Statement are negative. Past Medical History Past Medical History: Hypertension, Thyroid Disorder Additional Past Medical History / Comment(s): OCCASIONAL SWELLING IN ANKLES, HEMORRHOIDS AND OCCASIONAL BLOOD IN STOOL, RASH IN VAGINAL AREA. PT USES WALKER. History of Any Multi-Drug Resistant Organisms: None Reported Past Surgical History: Tubal Ligation Additional Past Surgical History / Comment(s): TOE SURGERY Additional Past Anesthesia/Blood Transfusion Reaction / Comment(s): HX OF SPINAL ANESTHESIA WITH DIFFICULTY BREATHING AND CHEST PRESSURE. Past Psychological History: No Psychological Hx Reported Smoking Status: Never smoker Past Alcohol Use History: None Reported Past Drug Use History: None Reported - Past Family History Mother Family Medical History: Cancer Additional Family Medical History / Comment(s): CERVICAL CA General Exam Limitations: no limitations General appearance: alert, in no apparent distress Head exam: Present: atraumatic, normocephalic Eye exam: Present: normal appearance ENT exam: Present: normal exam Neck exam: Present: normal inspection. Absent: tenderness, meningismus Respiratory exam: Present: normal lung sounds bilaterally. Absent: respiratory distress, wheezes Cardiovascular Exam: Present: regular rate, normal rhythm GI/Abdominal exam: Present: soft. Absent: distended, tenderness, guarding Extremities exam: Present: normal inspection Neurological exam: Present: alert, oriented X3, CN II-XII intact. Absent: motor sensory deficit Psychiatric exam: Present: normal affect, normal mood Skin exam: Present: warm, dry, intact. Absent: cyanosis, diaphoretic Course Vital Signs 10/28/21 10/28/21 10/28/21 16:03 17:08 19:00 Temperature 98 F Pulse Rate 84 71 Respiratory 18 18 Rate Blood Pressure 82/45 98/53 98/51 O2 Sat by Pulse 96 98 Oximetry EKG Findings - EKG Comments: EKG Findings:: EKG: Sinus rhythm with first-degree AV block, frequent PVC, left axis no ST segment elevation rate of 74, WV interval 217, QRS duration 141, QTC 494. Medical Decision Making - Medical Decision Making 80-year-old female with hypotension. Hypotension likely secondary to antihypertensive medication lisinopril. Second complaint was bright red rectal bleeding. Patient does have a small hemorrhoid not currently bleeding but likely the source of recent rectal bleeding. Blood pressure improves in the emergency department. Hemoglobin is 10.9 which is stable. She has a mild hypokalemia which is replaced. Blood pressure remains low, the patient is essentially asymptomatic. She will be observed overnight with IV fluids. There is discussed with some physician group. - Lab Data Result diagrams: 10/28/21 17:21 10/28/21 17:21 Lab Results 10/28/21 10/28/21 10/28/21 Range/Units 17:21 17:21 17:21 WBC 7.5 (3.8-10.6) k/uL RBC 3.63 L (3.80-5.40) m/uL Hgb 10.9 L (11.4-16.0) gm/dL Hct 32.9 L (34.0-46.0) % MCV 90.7 (80.0-100.0) fL MCH 30.0 (25.0-35.0) pg MCHC 33.0 (31.0-37.0) g/dL RDW 14.6 (11.5-15.5) % Plt Count 240 (150-450) k/uL MPV 8.3 Neutrophils % 76 % Lymphocytes % 11 % Monocytes % 9 % Eosinophils % 1 % Basophils % 1 % Neutrophils # 5.7 (1.3-7.7) k/uL Lymphocytes # 0.8 L (1.0-4.8) k/uL Monocytes # 0.7 (0-1.0) k/uL Eosinophils # 0.1 (0-0.7) k/uL Basophils # 0.1 (0-0.2) k/uL PT 10.2 (9.0-12.0) sec INR 0.9 (<1.2) APTT 26.9 (22.0-30.0) sec Sodium 134 L (137-145) mmol/L Potassium 3.2 L (3.5-5.1) mmol/L Chloride 94 L (98-107) mmol/L Carbon Dioxide 29 (22-30) mmol/L Anion Gap 11 mmol/L BUN 69 H (7-17) mg/dL Creatinine 1.52 H (0.52-1.04) mg/dL Est GFR (CKD-EPI)AfAm 38 (>60 ml/min/1.73 sqM) Est GFR (CKD-EPI)NonAf 33 (>60 ml/min/1.73 sqM) Glucose 88 (74-99) mg/dL Calcium 8.7 (8.4-10.2) mg/dL Magnesium 1.7 (1.6-2.3) mg/dL Total Bilirubin 0.4 (0.2-1.3) mg/dL AST 33 (14-36) U/L ALT 12 (4-34) U/L Alkaline Phosphatase 81 (38-126) U/L Total Protein 6.8 (6.3-8.2) g/dL Albumin 3.9 (3.5-5.0) g/dL Disposition Clinical Impression: Hemorrhoids, Hypotension, Dehydration, RADHA (acute kidney injury) Disposition: ADMITTED IP TO THIS [facility] Condition: Stable Instructions (If sedation given, give patient instructions): Hemorrhoids (ED), Hypotension (DC) Additional Instructions: Please did not take lisinopril awaiting reevaluation by primary care physician. Please monitor your rectal bleeding, return with any worsening or changing symptoms. Is patient prescribed a controlled substance at d/c from ED?: No Referrals: Malik Correa DO [Primary Care Provider] - 1-2 days Time of Disposition: 19:36
[2021-10-28 17:46] LABS: Albumin 3.9 g/dL (3.5-5.0); Calcium 8.7 mg/dL (8.4-10.2); Magnesium 1.7 mg/dL (1.6-2.3); Potassium 3.2 mmol/L (3.5-5.1); Total Bilirubin 0.4 mg/dL (0.2-1.3); Total Protein 6.8 g/dL (6.3-8.2)
[2021-10-28 17:50] LABS: Basophils # (A) 0.1 k/uL (0-0.2); Basophils % (A) 1 %; Eosinophils # (A) 0.1 k/uL (0-0.7); Eosinophils % (A) 1 %; HCT 32.9 % (34.0-46.0); HGB 10.9 gm/dL (11.4-16.0); Lymphocytes # (A) 0.8 k/uL (1.0-4.8); Lymphocytes % (A) 11 %; MCV 90.7 fL (80.0-100.0); Mean Platelet Volume 8.3; Monocytes # (A) 0.7 k/uL (0-1.0); Monocytes % (A) 9 %; Neutrophils # (A) 5.7 k/uL (1.3-7.7); Neutrophils % (A) 76 %; Platelet Count 240 k/uL (150-450); RBC 3.63 m/uL (3.80-5.40); RDW 14.6 % (11.5-15.5); WBC 7.5 k/uL (3.8-10.6)
[2021-10-28] MEDS ORDERED: POTASSIUM CHLORIDE ER 20 MEQ TAB.ER PO STA (17:54)
[2021-10-28 17:55] LABS: INR 0.9 (<1.2); Partial Thromboplastin Time 26.9 sec (22.0-30.0); Prothrombin Time 10.2 sec (9.0-12.0)
[2021-10-28] MEDS ORDERED: NALOXONE 0.4 MG/ML 1 ML VIAL IV PRN (19:36)
[2021-10-28] MEDS ORDERED: ACETAMINOPHEN TAB 325 MG TAB PO PRN (19:36)
[2021-10-28] MEDS: SODIUM CHLORIDE 0.9% 1,000 ML IV SCH (19:55)
[2021-10-28 20:54] LABS: Appearance,Urine Cloudy (Clear); Bacteria,Urine Rare /hpf; Bilirubin,Urine Negative (Negative); Blood,Urine Moderate (Negative); Budding Yeast,Urine Rare /hpf; Calcium Oxalate Crystals,Urine Rare /hpf; Color,Urine Yellow; Glucose,Urine (UA) Negative (Negative); Hyaline Casts,Urine 4 /lpf (0-2); Ketones,Urine Negative (Negative); Leukocyte Esterase,Urine Large (Negative); Mucus,Urine Few /hpf; Nitrite,Urine Negative (Negative); Protein,Urine 1+ (Negative); RBC,Urine 7 /hpf (0-5); Specific Gravity,Urine 1.013 (1.001-1.035); Squamous Epithelial Cell,Urine 6 /hpf (0-4); Urobilinogen,Urine <2.0 mg/dL (<2.0); WBC,Urine 11 /hpf (0-5)
--- NOTE | 2021-10-29 03:35 | P.HPIM ---
History of Present Illness H&P Date: 10/28/21 Chief Complaint: Hypotension 80-year-old female with history of peptic ulcer disease, borderline hypertension Patient has been told multiple times by her doctors that she had blood pressure she was prescribed lisinopril low dose 5 mg however she's not been taking up until today as she's been told recently by her primary care doctor that she should take all her prescription medications so she decided to start her lisinopril which immediately after taking started feeling dizzy and lightheaded and found that her blood pressure is low. She is also been on diuretics for lower extremity edema she's been noticing that his urine has been dark in color and concentrated. She also adds that this morning she noticed some fresh blood per rectum she is known to have hemorrhoids however she recently had peptic ulcer disease with melena and significant bleeding from upper GI for which she was concerned and decided to come in for evaluation. Otherwise denies any fevers or chills denies any headache denies any other focal neuro deficits denies any changes in vision or hearing denies any chest pain or trouble breathing denies any abdominal pain In the ED she was found to have hemoglobin of 10.9 which is higher than her average readings over the past few months. Slight elevated creatinine with acute kidney injury. Rectal exam done by ED doctor showed hemorrhoid. Potas sium was slightly low at 3.2. Otherwise she denies any diarrhea or vomiting denies any sick contact denies any fevers or chills denies any upper respiratory infection symptoms. Denies any recent travel or hospitalization Patient also reports symptoms suggestive of restless leg syndrome and peripheral neuropathy Review of Systems Pertinent positives as noted in HPI. All other systems were reviewed and are negative Past Medical History Past Medical History: Hypertension, Thyroid Disorder Additional Past Medical History / Comment(s): OCCASIONAL SWELLING IN ANKLES, HEMORRHOIDS AND OCCASIONAL BLOOD IN STOOL, RASH IN VAGINAL AREA. PT USES WALKER. History of Any Multi-Drug Resistant Organisms: None Reported Past Surgical History: Tubal Ligation Additional Past Surgical History / Comment(s): TOE SURGERY Additional Past Anesthesia/Blood Transfusion Reaction / Comment(s): HX OF SPINAL ANESTHESIA WITH DIFFICULTY BREATHING AND CHEST PRESSURE. Past Psychological History: No Psychological Hx Reported Smoking Status: Never smoker Past Alcohol Use History: None Reported Past Drug Use History: None Reported - Past Family History Mother Family Medical History: Cancer Additional Family Medical History / Comment(s): CERVICAL CA Medications and Allergies Home Medications Medication Instructions Recorded Confirmed Type Levothyroxine Sodium [Synthroid] 175 mcg PO MOTUWETH 10/05/14 10/28/21 History Levothyroxine Sodium [Synthroid] 200 mcg PO SUFRSA 10/05/14 10/28/21 History Turmeric Root Extract [Turmeric] 500 mg PO DAILY 05/14/20 10/28/21 History Ferrous Sulfate [Iron (65 MG 325 mg PO DAILY 01/17/21 10/28/21 History Elemental)] Ascorbic Acid [Vitamin C] 500 mg PO W/SUPPER 10/28/21 10/28/21 History Calcium Carbonate [Calcium] 600 mg PO W/SUPPER 10/28/21 10/28/21 History Cholecalciferol [Vitamin D3 (25 25 mcg PO W/SUPPER 10/28/21 10/28/21 History Mcg = 1000 Iu)] Furosemide [Lasix] 40 mg PO DAILY 10/28/21 10/28/21 History Hydroxychloroquine Sulfate 200 mg PO SA@0900,2100 10/28/21 10/28/21 History Loteprednol Etabonate [Lotemax] 1 drop LEFT EYE TID 10/28/21 10/28/21 History Multivitamins, Thera [Multivitamin 1 tab PO DAILY 10/28/21 10/28/21 History (formulary)] Mpoobrog-Rcjltosoi-Ckhrrqlw 1 applic LEFT EYE HS 10/28/21 10/28/21 History [Maxitrol Ophth Oint] Omeprazole 40 mg PO HS 10/28/21 10/28/21 History Potassium Chloride ER [K-Dur 20] 20 meq PO W/SUPPER 10/28/21 10/28/21 History Vitamin A 2,400 mcg PO W/SUPPER 10/28/21 10/28/21 History Vitamin E (Dl,Tocopheryl Acet) 400 unit PO W/SUPPER 10/28/21 10/28/21 History [Vitamin E (400 Iu = 180 mg)] Zinc 50 mg PO HS 10/28/21 10/28/21 History lisinopriL [Zestril] 5 mg PO ONCE 10/28/21 10/28/21 History metOLazone 2.5 mg PO DAILY 10/28/21 10/28/21 History Allergies Allergy/AdvReac Type Severity Reaction Status Date / Time ibuprofen Allergy "Hemorrhagi Verified 10/28/21 17:39 ng/Bleeding " Penicillins Allergy Unknown Verified 10/28/21 17:39 Childhood Physical Exam Vitals: Vital Signs Temp Pulse Resp BP Pulse Ox 10/28/21 19:00 71 18 98/51 98 10/28/21 17:08 98/53 10/28/21 16:03 98 F 84 18 82/45 96 Intake and Output 10/28/21 10/28/21 10/28/21 06:59 14:59 22:59 Other: Weight 97.522 kg Constitutional: No acute distress, conversant, pleasant Eyes: Anicteric sclerae, moist conjunctiva, Pupils equal round reactive to light ENMT: NC/AT Oropharynx clear, no erythema, or exudates Neck: Supple, FROM, no masses, or JVD No carotid bruits No thyromegaly Lungs: Clear to auscultation Clear to percussion Normal respiratory effort, no accessory muscle use Cardiovascular: Heart regular in rate and rhythm, No murmurs, gallops, or rubs No peripheral edema Abdominal: Soft Nontender, no guarding, rebound or rigidity Abdomen moving with respiration Normoactive bowel sounds No hepatomegaly, No splenomegaly No palpable mass No abdominal wall hernia noted Skin: Normal temperature, tone, texture, turgor No induration No subcutaneous nodules No rash, lesions No ulcers Extremities: Swelling of bilateral ankles No digital cyanosis No clubbing Pedal pulses weak and symmetrical, capillary refill immediate Radial pulses intact and symmetrical No calf tenderness Psychiatric: Alert and oriented to person, place and time Appropriate affect fair judgement Neuro Muscles Strength 4/5 in all 4 extremities Sensation to light touch grossly present throughout Cranial nerves II-XII grossly intact No focal sensory deficits Lymphatics: no palpable cervical or supraclavicular , or inguinal lymph nodes Results CBC & Chem 7: 10/28/21 17:21 10/28/21 17:21 Labs: Abnormal Lab Results - Last 24 Hours (Table) 10/28/21 10/28/21 Range/Units 17:21 17:21 RBC 3.63 L (3.80-5.40) m/uL Hgb 10.9 L (11.4-16.0) gm/dL Hct 32.9 L (34.0-46.0) % Lymphocytes # 0.8 L (1.0-4.8) k/uL Sodium 134 L (137-145) mmol/L Potassium 3.2 L (3.5-5.1) mmol/L Chloride 94 L (98-107) mmol/L BUN 69 H (7-17) mg/dL Creatinine 1.52 H (0.52-1.04) mg/dL Assessment and Plan Assessment: Acute kidney injury most likely related to prerenal ATN from use of diuretics Hold diuretics Monitor renal function Monitor urine output Gentle IV fluid hydration Symptomatic hypotension with dizziness Check orthostatic vitals IV fluid hydration normal Hold lisinopril Monitor vital signs Fall precautions Recent history of peptic ulcer disease and GI bleeding Continue with PPI Chronic anemia, above baseline Continue to monitor hemoglobin rule out factors of hemoconcentration Bleeding hemorrhoids Consider outpatient follow-up Mild hypokalemia Replace and monitor levels Symptoms suggestive of restless leg syndrome Check ferritin level iF below 75 continue to aggressively replace by mouth iron Once above 75 consider starting patient on Requip or Neurontin DVT prophylaxis mechanical Anticipated length of stay less than 2 midnights Full code
[2021-10-29] MEDS ORDERED: LEVOTHYROXINE 100 MCG TAB PO SCH (06:30)
[2021-10-29 08:00] VITALS: BP 110/67; PULSE 91; RESP 18; TEMP 97.5
[2021-10-29] MEDS ORDERED: HEPARIN SODIUM,PORCINE/PF 5,000 UNIT/0.5 ML SYRINGE SQ SCH (08:00)
[2021-10-29] MEDS: SODIUM CHLORIDE 0.9% 1,000 ML IV SCH (08:15)
[2021-10-29] MEDS ORDERED: GABAPENTIN 100 MG CAP PO SCH (09:00)
[2021-10-29] MEDS ORDERED: FERROUS SULFATE 325 MG TAB PO SCH (09:00)
--- NOTE | 2021-10-29 11:40 | P.DS ---
Providers Date of admission: 10/28/21 19:36 Expected date of discharge: 10/29/21 Attending physician: La Castillo MD Primary care physician: Malik Correa - Discharge Diagnosis(es) (1) Hypotension The patient's hypotension was attributed to a combination of dehydration and lisinopril. The lisinopril and Lasix were held and her hypotension resolved. Current Visit: Yes Status: Resolved (2) Dehydration The patient was seen and did not have any evidence of poor skin turgor. Her hypotension has resolved and she feels back to her baseline. Current Visit: Yes Status: Acute (3) RADHA (acute kidney injury) The patient is advised to discontinue lisinopril. The patient will resume her Lasix and metolazone on 10/30 and will follow up with her PCP in 1-2 days Current Visit: Yes Status: Acute Hospital Course: The patient was placed in observation overnight. She received gentle hydration and her diuretics and lisinopril were held. Her hypotension resolved and the patient was at her baseline wanted to go home so she was advised to resume her Lasix and metolazone and 10/30. The patient will follow up with her PCP in 1-2 days. Patient Condition at Discharge: Good Plan - Discharge Summary New Discharge Prescriptions: No Action Levothyroxine Sodium [Synthroid] 175 mcg PO MOTUWETH Levothyroxine Sodium [Synthroid] 200 mcg PO SUFRSA Turmeric Root Extract [Turmeric] 500 mg PO DAILY Ferrous Sulfate [Iron (65 MG Elemental)] 325 mg PO DAILY Vitamin E (Dl,Tocopheryl Acet) [Vitamin E (400 Iu = 180 mg)] 400 unit PO W/SUPPER Multivitamins, Thera [Multivitamin (formulary)] 1 tab PO DAILY Cholecalciferol [Vitamin D3 (25 Mcg = 1000 Iu)] 25 mcg PO W/SUPPER Omeprazole 40 mg PO HS Ascorbic Acid [Vitamin C] 500 mg PO W/SUPPER metOLazone 2.5 mg PO DAILY Cohurxpx-Uezdjmsix-Jjhfllny [Maxitrol Ophth Oint] 1 applic LEFT EYE HS Loteprednol Etabonate [Lotemax] 1 drop LEFT EYE TID Calcium Carbonate [Calcium] 600 mg PO W/SUPPER Zinc 50 mg PO HS Potassium Chloride ER [K-Dur 20] 20 meq PO W/SUPPER Furosemide [Lasix] 40 mg PO DAILY Hydroxychloroquine Sulfate 200 mg PO SA@0900,2100 Vitamin A 2,400 mcg PO W/SUPPER Discharge Medication List Levothyroxine Sodium [Synthroid] 175 mcg PO MOTUWETH 10/05/14 [History] Levothyroxine Sodium [Synthroid] 200 mcg PO SUFRSA 10/05/14 [History] Turmeric Root Extract [Turmeric] 500 mg PO DAILY 05/14/20 [History] Ferrous Sulfate [Iron (65 MG Elemental)] 325 mg PO DAILY 01/17/21 [History] Ascorbic Acid [Vitamin C] 500 mg PO W/SUPPER 10/28/21 [History] Calcium Carbonate [Calcium] 600 mg PO W/SUPPER 10/28/21 [History] Cholecalciferol [Vitamin D3 (25 Mcg = 1000 Iu)] 25 mcg PO W/SUPPER 10/28/21 [History] Furosemide [Lasix] 40 mg PO DAILY 10/28/21 [History] Hydroxychloroquine Sulfate 200 mg PO SA@0900,2100 10/28/21 [History] Loteprednol Etabonate [Lotemax] 1 drop LEFT EYE TID 10/28/21 [History] Multivitamins, Thera [Multivitamin (formulary)] 1 tab PO DAILY 10/28/21 [History] Mxsxhetg-Txosvedam-Mynfasyc [Maxitrol Ophth Oint] 1 applic LEFT EYE HS 10/28/21 [History] Omeprazole 40 mg PO HS 10/28/21 [History] Potassium Chloride ER [K-Dur 20] 20 meq PO W/SUPPER 10/28/21 [History] Vitamin A 2,400 mcg PO W/SUPPER 10/28/21 [History] Vitamin E (Dl,Tocopheryl Acet) [Vitamin E (400 Iu = 180 mg)] 400 unit PO W/SUPPER 10/28/21 [History] Zinc 50 mg PO HS 10/28/21 [History] metOLazone 2.5 mg PO DAILY 10/28/21 [History] Follow up Appointment(s)/Referral(s): Malik Correa DO [Primary Care Provider] - 1-2 days Patient Instructions/Handouts: Hemorrhoids (ED), Hypotension (DC) Activity/Diet/Wound Care/Special Instructions: Please do not take lisinopril awaiting reevaluation by primary care physician. Please monitor your rectal bleeding, return with any worsening or changing symptoms. Discharge Disposition: HOME SELF-CARE
[2021-10-29 12:38] LABS: Basophils # (A) 0.03 X 10*3/uL (0.00-0.10); Basophils % (A) 0.5 %; Eosinophils # (A) 0.16 X 10*3/uL (0.04-0.35); Eosinophils % (A) 2.7 %; HCT 30.2 % (37.2-46.3); HGB 9.6 g/dL (12.0-15.0); Immature Grans, Automated 0.3 %; Lymphocytes # (A) 0.81 X 10*3/uL (0.90-5.00); Lymphocytes % (A) 13.9 %; MCHC 31.8 g/dL (32.0-37.0); MCV 91.2 fL (80.0-97.0); Mean Platelet Volume 10.7 fL (9.5-12.2); Monocytes # (A) 0.88 X 10*3/uL (0.20-1.00); Monocytes % (A) 15.1 %; NRBC Per 100 WBC 0 /100 WBCS (0.0-0.0); Neutrophils # (A) 3.94 X 10*3/uL (1.80-7.70); Neutrophils % (A) 67.5 %; Platelet Count 219 X 10*3/uL (140-440); RBC 3.31 X 10*6/uL (4.10-5.20); RDW 14.8 % (11.5-14.5); WBC 5.84 X 10*3/uL (4.50-10.00)
[2021-10-29 13:15] LABS: African American GFR (CKD) 38.9 (60.0-200.0); Anion Gap 13.1 mmol/L (10.00-18.00); BUN/Creat Ratio 41.82 Ratio (12.00-20.00); Blood Urea Nitrogen 61.9 mg/dL (9.0-27.0); Calcium 8.5 mg/dL (8.7-10.3); Carbon Dioxide 26.9 mmol/L (20.0-27.5); Ferritin 44.3 ng/mL (10.0-291.0); Non-African American GFR(CKD) 33.6 (60.0-200.0); Potassium 2.9 mmol/L (3.5-5.5)
[2021-10-29] MEDS ORDERED: prednisoLONE ACETATE 1% OPHTH DROPS 5 ML BTL LEFT EYE SCH (16:00)
[2021-10-29] MEDS ORDERED: CHOLECALCIFEROL 25 MCG (1000 IU) TABLET PO SCH (17:30)
[2021-10-29] MEDS ORDERED: ASCORBIC ACID 500 MG TAB PO SCH (17:30)
[2021-10-29] MEDS ORDERED: CALCIUM CARBONATE 500 MG CHEWABLE PO SCH (17:30)
[2021-10-29] MEDS ORDERED: HYDROXYCHLOROQUINE SULFATE 200 MG TAB PO SCH (21:00)
[2021-10-29] MEDS ORDERED: NEOMYCIN-POLYMYXIN-DEXAMETH OINT 3.5 GM TUBE LEFT EYE SCH (21:00)
[2021-10-29] MEDS ORDERED: PANTOPRAZOLE 40 MG TABLET PO SCH (21:00)
[2021-10-30] MEDS ORDERED: MULTIVITAMINS, THERA 1 EACH TAB PO SCH (09:00)
[2021-10-31] MEDS ORDERED: LEVOTHYROXINE 88 MCG TAB PO SCH (06:30)
== END 2021-10-29 12:25 | disposition home or self-care (01) ==
LOC: EC 15:48 → 6NMEDSUR 19:36
PROVIDERS: ADMIT Internal Medicine; ATTEND Internal Medicine
DX: I95.9 Hypotension, unspecified (principal); E86.0 Dehydration; N17.9 Acute kidney failure, unspecified; R60.0 Localized edema; E87.6 Hypokalemia; K62.5 Hemorrhage of anus and rectum; T46.4X6A Underdosing of angiotensin-converting-enzyme inhibitors, initial encounter; Z91.128 Patient's intentional underdosing of medication regimen for other reason; K27.4 Chronic or unspecified peptic ulcer, site unspecified, with hemorrhage; I10 Essential (primary) hypertension; E07.9 Disorder of thyroid, unspecified; D64.9 Anemia, unspecified; K64.9 Unspecified hemorrhoids; I44.0 Atrioventricular block, first degree; I49.3 Ventricular premature depolarization; Z79.890 Hormone replacement therapy; Z79.899 Other long term (current) drug therapy; Z88.8 Allergy status to other drugs, medicaments and biological substances; Z88.0 Allergy status to penicillin; Z71.9 Counseling, unspecified; Z80.49 Family history of malignant neoplasm of other genital organs
CPT/HCPCS: 96372; 96360; 96361; 99285; 36415; 93005; 86900; 86901; 80053; 80048; 82728; 83735; 85025 ×2; 85610; 85730; 86850; 81001; G0378 ×2; J1644